=== PATIENT | female | born 2000 | race Caucasian/White ===

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

== ENCOUNTER 2020-07-29 17:43 | Inpatient (IN) ==
[2020-07-29] MEDS ORDERED: SODIUM CHLORIDE 0.9% 1000ML 1,000 ML IV ONE (19:03)
[2020-07-29] MEDS ORDERED: ONDANSETRON INJ 2 MG/ML 2 ML VIAL IV STA (19:03)
[2020-07-29] MEDS ORDERED: ACETAMINOPHEN 1000 MG/100 ML IV IV STA (19:03)
[2020-07-29] MEDS ORDERED: KETOROLAC TROMETHAMINE 15 MG/ML VIAL IV ONE (19:03)
--- NOTE | 2020-07-29 19:09 | Emergency Department Note ---
Impression & Plan Acute dehydration, Colitis, Diarrhea, Leukocytosis ED Provider Note NAME: MIRACLE BERMUDEZ AGE: 20 SEX: F : 2000 ARRIVES VIA: Walk-In INFORMANT: [Patient] ED PROVIDER(S): [Rey Weathers MD] CHIEF COMPLAINT: Diarrhea HISTORY OF PRESENT ILLNESS: The patient is a 20-year-old female presents to the ED with complaints of 5 days of symptoms. She has had diarrhea. Initially, there was some blood in the diarrhea but this has resolved. She has diffuse crampy abdominal pain and feels bloated. She has had nausea with no appetite. She feels weak and exhausted and thinks that she is dehydrated. At times, she is had a low-grade fever up to 100.5 degrees. No sick contacts. No bad food eaten. The patient was at [facility] ago, her labs showed a slight leukocytosis and a slightly low sodium. She had a negative Covid test. The patient has never felt this before. There is no family history of inflammatory bowel disease. REVIEW OF SYSTEMS: See HPI for pertinent positives and negatives. A total of ten systems were reviewed and were otherwise negative. PMHx/PSHx: See Below SOCIAL HISTORY: See Below. PHYSICAL EXAM: GENERAL: Patient is in no acute distress. HEENT: No acute trauma, normocephalic atraumatic, mucous membranes moist, no nasal congestion, no scleral icterus. NECK: No stridor, no adenopathy, no meningismus, trachea is midline. LUNGS: Clear to auscultation bilaterally, no wheeze, no rhonchi, breath sounds equal. HEART: Mildly tachycardic, regular rhythm, no murmurs. ABDOMEN: Soft, mildly diffusely tender, bowel sounds positive and hyperactive, no hernias, no peritonitis. EXTREMITIES: No cyanosis or edema, full range of motion of all the joints without pain or difficulty, no signs for acute trauma. NEUROLOGIC: Oriented x 3, no acute motor or sensory deficits, no focal weakness. SKIN: No rash, no jaundice, no diaphoresis. DIFFERENTIAL DIAGNOSIS: Appendicitis, ovarian cyst, ovarian torsion, ectopic , TOA, PID, infections, colitis, foodborne or viral illness, diverticulitis, UTI, inflammatory bowel disease, renal colic, PUD, pancreatitis, biliary pathology, hernia, volvulus, as well as other pathologies. EMERGENCY DEPARTMENT COURSE/PROCEDURES: MEDICAL DECISION MAKING: There is a mild leukocytosis at 13,000, this is consistent with infection. There is a normal hemoglobin and platelet count. Sed rate was elevated at 50 consistent with ongoing inflammation. No significant electrolyte abnormality or kidney failure. No worrisome liver enzyme elevation. No evidence for pancreatitis. testing was negative. Urinalysis was suggestive of dehydration with 4+ ketones. No infection. Stool C. difficile was negative. Stool cultures are pending. Abdominal and pelvis CT shows evidence for diffuse colitis. On exam, the patient appeared dehydrated, she was diffusely mildly tender about the abdomen, she was not febrile, she did not appear acutely toxic. The patient received IV Tylenol for pain, she was given IV Zofran and IV saline 1 L. She received IV Toradol. She eventually was given a second dose of IV Zofran and a dose of IV Pepcid. She received 2 L of lactated Ringer's IV. Patient has been here for around 7 hours, she still nauseated, she still feels unwell. I did speak with GI about her case. No antibiotics are to be administered--we await the stool culture results. The patient is in need of a colonoscopy in the near future. Given the circumstances, given her presentation and lack of improvement here in the ED, I do think a hospital stay is warranted. I spoke to the patient about all of her findings, I spoke with case management. The on-call hospitalist was consulted. Past Med/Surg History Medical History No significant past medical history Social History Smoking Status: Never smoker Preferred Language: Malay Feels Safe at Home: Yes Allergies Allergies Allergy/AdvReac Type Severity Reaction Status Date / Time No Known Allergies Allergy Unverified 07/29/20 20:18 Home Meds Home Medications Medication Instructions Recorded Confirmed dicyclomine 10 mg PO QID 07/29/20 07/29/20 loperamide [Imodium] 2 mg PO Q6H PRN 07/29/20 07/29/20 Results & Data (ED) Vital Signs Vital Signs - 24 hr 07/29/20 17:51 07/29/20 19:15 07/29/20 19:17 Temperature 36.8 C Temperature Source Temporal Artery Scan Pulse Rate 118 H 105 H Pulse Rate [Apical] 91 H Pulse Rate from SpO2 Sensor 103 H Pulse Rhythm [Apical] Regular Pulse Strength [Apical] Normal Respiratory Rate 16 15 16 Respiratory Effort / Characteristics Non-Labored Non-Labored Spontaneous Respiratory Depth Normal Normal Respiratory Pattern Regular Regular Blood Pressure 123/84 118/82 Blood Pressure [Right Arm] 118/82 Blood Pressure Mean 97 94 Blood Pressure Mean [Right Arm] 94 Blood Pressure Position Sitting Blood Pressure Position [Right Arm] Sitting Pulse Oximetry 94 99 100 Oxygen Delivery Method Room Air Room Air Room Air Sepsis Recent Fever Within 48 Hours No Sepsis New/Unexplained Change in Mental Status No Sepsis Action Taken by Nursing No Action Required 07/29/20 19:31 07/29/20 20:00 07/29/20 20:20 Temperature Temperature Source Pulse Rate 99 H 99 H Pulse Rate [Apical] Pulse Rate from SpO2 Sensor 99 H 97 H Pulse Rhythm [Apical] Pulse Strength [Apical] Respiratory Rate 15 20 Respiratory Effort / Characteristics Non-Labored Spontaneous Respiratory Depth Normal Respiratory Pattern Regular Blood Pressure Blood Pressure [Right Arm] Blood Pressure Mean Blood Pressure Mean [Right Arm] Blood Pressure Position Blood Pressure Position [Right Arm] Pulse Oximetry 100 97 Oxygen Delivery Method Room Air Sepsis Recent Fever Within 48 Hours Sepsis New/Unexplained Change in Mental Status Sepsis Action Taken by Nursing 07/29/20 20:30 07/29/20 21:29 07/29/20 21:30 Temperature Temperature Source Pulse Rate 99 H 90 84 Pulse Rate [Apical] Pulse Rate from SpO2 Sensor 99 H 91 H 85 Pulse Rhythm [Apical] Pulse Strength [Apical] Respiratory Rate 15 17 17 Respiratory Effort / Characteristics Respiratory Depth Respiratory Pattern Blood Pressure 120/81 113/76 Blood Pressure [Right Arm] Blood Pressure Mean 94 88 Blood Pressure Mean [Right Arm] Blood Pressure Position Blood Pressure Position [Right Arm] Pulse Oximetry 96 97 95 Oxygen Delivery Method Room Air Room Air Sepsis Recent Fever Within 48 Hours Sepsis New/Unexplained Change in Mental Status Sepsis Action Taken by Long-Term Medications Current Medication List: was personally reviewed by me Laboratory Data Attestation: I reviewed the patient's lab results. Result diagrams: 07/29/20 19:35 07/29/20 19:35 Lab Results 07/29/20 07/29/20 07/29/20 Range/Units 19:35 19:35 19:35 WBC 13.79 H (4.8-10.8) K/uL RBC 4.30 (4.2-5.4) M/uL Hgb 12.9 (12.0-16.0) g/dL Hct 37.4 (37-47) % MCV 87.0 (80-100) fL MCH 30.0 (25-34) pg MCHC 34.5 (32-36) g/dL RDW Std Deviation 38.8 (36.4-46.3) fL RDW Coeff of Jase 12.1 (11.5-14.5) % Plt Count 375 (130-400) K/uL MPV 10.0 (7.4-10.4) fL Immature Gran % (Auto) 5.3 % Neut % (Auto) 63.9 % Lymph % (Auto) 13.1 % [place] % (Auto) 16.9 % Eos % (Auto) 0.4 % Baso % (Auto) 0.4 % Neut # (Auto) 8.82 H (1.4-6.5) K/uL Lymph # (Auto) 1.80 (1.2-3.4) K/uL [place] # (Auto) 2.33 H (0.11-0.59) K/uL Eos # (Auto) 0.05 (0-0.5) K/uL Baso # (Auto) 0.06 (0-0.2) K/uL Immature Gran # (Auto) 0.73 H (0.00-0.02) K/uL Absolute Nucleated RBC 0.02 H (0-0) K/uL Nucleated RBC % (auto) 0.1 % Toxic Granulation 1+ Polychromasia 1+ ESR (0-21) mm/hr Sodium 133 L (136-145) mmol/L Potassium 3.7 (3.5-5.1) mmol/L Chloride 98 (98-107) mmol/L Carbon Dioxide 25 (21-32) mmol/L Anion Gap 10.0 (3-11) BUN 8 (7-18) mg/dl Creatinine 0.71 (0.6-1.2) mg/dl Est Cr Clr Drug Dosing 120.9 ml/min Est GFR ( Amer) 141.1 Est GFR (Non-Af Amer) 121.8 BUN/Creatinine Ratio 11.4 (10-20) Glucose 106 H (70-99) mg/dl Calcium 9.0 (8.5-10.1) mg/dl Magnesium 2.0 (1.8-2.4) mg/dl Total Bilirubin 0.7 (0.2-1) mg/dl AST 7 L (15-37) U/L ALT 16 (12-78) U/L Alkaline Phosphatase 113 (45-117) U/L Total Protein 7.3 (6.4-8.2) gm/dl Albumin 2.9 L (3.4-5.0) gm/dl Globulin 4.4 H (2.5-4.0) gm/dl Albumin/Globulin Ratio 0.7 L (0.9-2) Lipase 86 (73-393) U/L HCG, Qual Negative (Negative) Urine Color Urine Appearance (Clear) Urine pH (4.5-7.5) Ur Specific [place] (1.000-1.030) Urine Protein (Negative) Urine Glucose (UA) (Negative) Urine Ketones (Negative) Urine Blood (Negative) Urine Nitrite (Negative) Urine Bilirubin (Negative) Urine Urobilinogen (Negative) Ur Leukocyte Esterase (Negative) Urine WBC (Auto) (0-5) /hpf Urine RBC (Auto) (0-4) /hpf U Hyaline Cast (Auto) (0-5) /lpf U Epithel Cells (Auto) (0-5) /lpf Urine Bacteria (Auto) (Negative) Ur Renal Epithelial Cell Stl C. diff Tox B Gene (Neg) 07/29/20 07/29/20 07/29/20 Range/Units 19:35 19:35 Unknown WBC (4.8-10.8) K/uL RBC (4.2-5.4) M/uL Hgb (12.0-16.0) g/dL Hct (37-47) % MCV (80-100) fL MCH (25-34) pg MCHC (32-36) g/dL RDW Std Deviation (36.4-46.3) fL RDW Coeff of Jase (11.5-14.5) % Plt Count (130-400) K/uL MPV (7.4-10.4) fL Immature Gran % (Auto) % Neut % (Auto) % Lymph % (Auto) % [place] % (Auto) % Eos % (Auto) % Baso % (Auto) % Neut # (Auto) (1.4-6.5) K/uL Lymph # (Auto) (1.2-3.4) K/uL [place] # (Auto) (0.11-0.59) K/uL Eos # (Auto) (0-0.5) K/uL Baso # (Auto) (0-0.2) K/uL Immature Gran # (Auto) (0.00-0.02) K/uL Absolute Nucleated RBC (0-0) K/uL Nucleated RBC % (auto) % Toxic Granulation Polychromasia ESR 49 H (0-21) mm/hr Sodium (136-145) mmol/L Potassium (3.5-5.1) mmol/L Chloride (98-107) mmol/L Carbon Dioxide (21-32) mmol/L Anion Gap (3-11) BUN (7-18) mg/dl Creatinine (0.6-1.2) mg/dl Est Cr Clr Drug Dosing ml/min Est GFR ( Amer) Est GFR (Non-Af Amer) BUN/Creatinine Ratio (10-20) Glucose (70-99) mg/dl Calcium (8.5-10.1) mg/dl Magnesium (1.8-2.4) mg/dl Total Bilirubin (0.2-1) mg/dl AST (15-37) U/L ALT (12-78) U/L Alkaline Phosphatase (45-117) U/L Total Protein (6.4-8.2) gm/dl Albumin (3.4-5.0) gm/dl Globulin (2.5-4.0) gm/dl Albumin/Globulin Ratio (0.9-2) Lipase (73-393) U/L HCG, Qual (Negative) Urine Color [place] Urine Appearance Cloudy A (Clear) Urine pH 6.5 (4.5-7.5) Ur Specific [place] 1.022 (1.000-1.030) Urine Protein 1+ H (Negative) Urine Glucose (UA) Negative (Negative) Urine Ketones 4+ H (Negative) Urine Blood Negative (Negative) Urine Nitrite Negative (Negative) Urine Bilirubin 1+ H (Negative) Urine Urobilinogen Negative (Negative) Ur Leukocyte Esterase Trace H (Negative) Urine WBC (Auto) 1-5 (0-5) /hpf Urine RBC (Auto) 5-10 H (0-4) /hpf U Hyaline Cast (Auto) 5-10 H (0-5) /lpf U Epithel Cells (Auto) >30 H (0-5) /lpf Urine Bacteria (Auto) Negative (Negative) Ur Renal Epithelial Cell Not Reportable Stl C. diff Tox B Gene Negative Cdiff Gene (Neg) Administered Medications Discontinued Medications Acetaminophen (Acetaminophen 1000 Mg/100 Ml Iv) 1,000 mg IV NOW STA Stop: 07/29/20 19:04 Last Admin: 07/29/20 19:43 Dose: 1,000 mg Documented by: [id number] Sodium Chloride (Nss 1000ml) 1,000 mls @ 999 mls/hr IV .Q1H1M ONE Stop: 07/29/20 20:03 Last Infusion: 07/29/20 20:30 Dose: 0 mls/hr Documented by: [id number] Admin: 07/29/20 19:36 Dose: 999 mls/hr Documented by: [id number] Lactated Ringer's (Lr) 1,000 mls @ 999 mls/hr IV .Q1H1M STA Stop: 07/29/20 21:46 Last Infusion: 07/29/20 22:00 Dose: 0 mls/hr Documented by: [id number] Admin: 07/29/20 21:25 Dose: 999 mls/hr Documented by: [id number] Lactated Ringer's (Lr) 1,000 mls @ 999 mls/hr IV .Q1H1M STA Stop: 07/30/20 00:12 Last Admin: 07/29/20 23:18 Dose: 999 mls/hr Documented by: [id number] Ioversol (Ioversol 100ml) 93 ml IV ONCE ONE Stop: 07/29/20 21:57 Last Admin: 07/29/20 21:57 Dose: 93 ml Documented by: [id number] Ketorolac Tromethamine (Ketorolac Tromethamine 15 Mg/Ml Vial) 10 mg IV NOW ONE Stop: 07/29/20 19:04 Last Admin: 07/29/20 19:43 Dose: 10 mg Documented by: [id number] Ondansetron HCl (Ondansetron Inj 2 Mg/Ml 2 Ml Vial) 4 mg IV NOW STA Stop: 07/29/20 19:04 Last Admin: 07/29/20 19:43 Dose: 4 mg Documented by: [id number] Imaging Data Radiologist's Impression: ABDOMEN AND PELVIS CT WITH IV AND ORAL CONTRAST CT DOSE: 298.20 mGy.cm HISTORY: Acute generalized abdominal pain with fever and diarrhea diffuse pain, diarrhea, fever TECHNIQUE: Multiaxial CT images of the abdomen and pelvis were performed following the IV administration of 93 cc of Optiray 320 and oral contrast. A dose lowering technique was utilized adhering to the principles of ALARA. COMPARISON STUDY: None. FINDINGS: Clear lung bases. No pneumatosis or pneumoperitoneum. The imaged inferior cardiac chambers are unremarkable. Spleen measures the upper limits of normal in size at 12.8 cm. Unremarkable pancreas, adrenal glands, gallbladder and liver. Patency of the hepatic and portal veins. Mild pelviectasis of the right kidney. Kidneys are otherwise unremarkable. Mild urinary bladder distention. Unremarkable uterus. Phleboliths of the pelvis. Aorta and IVC are unremarkable. There is no bowel obstruction. Air and fluid-filled loops of large bowel are noted. Additionally, there is moderate to marked circumferential wall thickening with pericolonic stranding and trace free fluid which extends from the cecum through the mid descending colon. The ascending colon measures up to 5.5 cm transversely. There are numerous prominent and mildly enlarged lymph nodes which are most pronounced in the right lower quadrant mesocolon measuring up to 11 mm in short axis. The appendix is fluid-filled and measures up to 7 mm and does not opacify with contrast, image 302 series 3. No periappendiceal inflammation. The breast parenchyma and soft tissues are unremarkable. Bones appear normal. IMPRESSION: 1. Moderate to marked circumferential wall thickening of the colon which extends from the cecum to the mid descending colon is noted in conjunction with pericolonic stranding and trace pericolonic free fluid. Findings are consistent with a nonspecific colitis, likely infectious or inflammatory. 2. Air-fluid levels of the colon compatible with associated diarrheal illness. 3. The appendix is fluid-filled and measures within the upper limits of normal at 7 mm, likely secondary to underlying diarrheal illness. No periappendiceal stranding to suggest acute appendicitis. 4. Enlarged pericolonic lymph nodes are likely reactive. 5. No bowel obstruction or pneumoperitoneum. Discharge Plan Visit Data Chief Complaint: Diarrhea Stated Complaint: DIARRHEA, ABD PAIN ED Provider: Rey Weathers Discharge Problem: Acute dehydration, Colitis, Diarrhea, Leukocytosis Patient Disposition: Admitted As Inpatient Condition: Fair Forms Stand Alone Forms: [facility], Virtual Emergency Department, Important Visit Information Prescriptions Prescriptions: No Action loperamide [Imodium] 2 mg Capsule 2 mg PO Q6H PRN (Reason: Diarrhea) RF: 0 dicyclomine 10 mg capsule 10 mg PO QID RF: 0 Referrals Referrals: Jasbir Pack MD [Physician] - [facility] [Primary Care Provider] - Discharge Problem: Diarrhea Qualifiers: Diarrhea type: unspecified type Qualified Code(s): R19.7 - Diarrhea, unspecifi ed Leukocytosis Qualifiers: Leukocytosis type: unspecified Qualified Code(s): D72.829 - Elevated white blood cell count, unspecified
[2020-07-29 19:54] LABS: Hematocrit (blood only) 37.4 % (37-47); Hemoglobin 12.9 g/dL (12.0-16.0); Mean Corpuscular Hgb Conc 34.5 g/dL (32-36); Nucleated RBC # (auto) 0.02 K/uL (0-0); Nucleated RBC % (auto) 0.1 %; Platelet Count 375 K/uL (130-400); RDW Coefficient of Variation 12.1 % (11.5-14.5); RDW Standard Deviation 38.8 fL (36.4-46.3); White Blood Count 13.79 K/uL (4.8-10.8)
[2020-07-29 20:06] LABS: Appearance Urine Cloudy (Clear); Bacteria Urine Automated Negative (Negative); Blood Urine Negative (Negative); Color Urine Orange; Epithelial Cell Urine Auto >30 /lpf (0-5); Glucose Urine UA Negative (Negative); Ketones Urine 4+ (Negative); Leukocyte Esterase Urine Trace (Negative); Nitrite Urine Negative (Negative); Protein Urine 1+ (Negative); Specific Gravity Urine 1.022 (1.000-1.030); Urobilinogen Urine Negative (Negative); pH Urine 6.5 (4.5-7.5)
[2020-07-29 20:13] LABS: Basophils # (auto) 0.06 K/uL (0-0.2); Basophils % (auto) 0.4 %; Eosinophils # (auto) 0.05 K/uL (0-0.5); Eosinophils % (auto) 0.4 %; Immature Granulocytes # (auto) 0.73 K/uL (0.00-0.02); Immature Granulocytes % (auto) 5.3 %; Lymphocytes % (auto) 13.1 %; Monocytes # (auto) 2.33 K/uL (0.11-0.59); Monocytes % (auto) 16.9 %; Neutrophils # (auto) 8.82 K/uL (1.4-6.5); Neutrophils % (auto) 63.9 %; Polychromasia 1+; Toxic Granulation 1+
[2020-07-29 20:15] LABS: Albumin Level 2.9 gm/dl (3.4-5.0); BUN Creatinine Ratio 11.4 (10-20); Creatinine Clr Calc Pharmacy 120.9 ml/min; Est GFR (African American) 141.1; Est GFR (Non-African American) 121.8; Potassium 3.7 mmol/L (3.5-5.1)
[2020-07-29 20:17] LABS: Albumin Globulin Ratio 0.7 (0.9-2); Bilirubin,Total 0.7 mg/dl (0.2-1); Globulin 4.4 gm/dl (2.5-4.0); Total Protein 7.3 gm/dl (6.4-8.2)
[2020-07-29 20:23] LABS: Pregnancy Test, Serum Negative (Negative)
[2020-07-29 20:28] LABS: Bilirubin Urine 1+ (Negative)
[2020-07-29] MEDS ORDERED: LACTATED RINGER'S 1,000 ML IV STA ×2 (20:46→23:12)
[2020-07-29] MEDS ORDERED: IOVERSOL 100ml IV ONE (21:56)
--- NOTE | 2020-07-29 22:38 | CT Scan Report ---
ABDOMEN AND PELVIS CT WITH IV AND ORAL CONTRAST CT DOSE: 298.20 mGy.cm HISTORY: Acute generalized abdominal pain with fever and diarrhea diffuse pain, diarrhea, fever TECHNIQUE: Multiaxial CT images of the abdomen and pelvis were performed following the IV administrat ion of 93 cc of Optiray 320 and oral contrast. A dose lowering technique was utilized adhering to th e principles of ALARA. COMPARISON STUDY: None. FINDINGS: Clear lung bases. No pneumatosis or pneumoperitoneum. The imaged inferior cardiac chambers are unremarkable. Spleen measures the upper limits of normal in size at 12.8 cm. Unremarkable pancrea s, adrenal glands, gallbladder and liver. Patency of the hepatic and portal veins. Mild pelviectasis of the right kidney. Kidneys are otherwise unremarkable. Mild urinary bladder diste ntion. Unremarkable uterus. Phleboliths of the pelvis. Aorta and IVC are unremarkable. There is no bowel obstruction. Air and fluid-filled loops of large bowel are noted. Additionally, the re is moderate to marked circumferential wall thickening with pericolonic stranding and trace free fl uid which extends from the cecum through the mid descending colon. The ascending colon measures up to 5.5 cm transversely. There are numerous prominent and mildly enlarged lymph nodes which are most pro nounced in the right lower quadrant mesocolon measuring up to 11 mm in short axis. The appendix is fl uid-filled and measures up to 7 mm and does not opacify with contrast, image 302 series 3. No periapp endiceal inflammation. The breast parenchyma and soft tissues are unremarkable. Bones appear normal. IMPRESSION: 1. Moderate to marked circumferential wall thickening of the colon which extends from the cecum to th e mid descending colon is noted in conjunction with pericolonic stranding and trace pericolonic free fluid. Findings are consistent with a nonspecific colitis, likely infectious or inflammatory. 2. Air-fluid levels of the colon compatible with associated diarrheal illness. 3. The appendix is fluid-filled and measures within the upper limits of normal at 7 mm, likely second victor hugo to underlying diarrheal illness. No periappendiceal stranding to suggest acute appendicitis. 4. Enlarged pericolonic lymph nodes are likely reactive. 5. No bowel obstruction or pneumoperitoneum. ACT 112: Negative or not required by law. The above report was generated using voice recognition software. It may contain grammatical, syntax o r spelling errors. Electronically signed by: Ron Horton M.D. 07/29/2020 10:37 PM
[2020-07-30] MEDS ORDERED: ONDANSETRON INJ 2 MG/ML 2 ML VIAL IV STA (01:10)
[2020-07-30] MEDS ORDERED: FAMOTIDINE 20MG/5ML IV PUSH IV STA (01:10)
[2020-07-30] MEDS ORDERED: LACTATED RINGER'S 1,000 ML IV ONE (01:52)
--- NOTE | 2020-07-30 02:00 | History & Physical Report ---
Date of Service July 30, 2020 Assessment & Plan (1) Colitis: Patient is a 20 year female with PMHx internal hemorrhoids that presented with 6 day history of copious and occasionally blood tinged diarrhea with minimal relief with Imodium use. Diarrhea secondary to Colitis -6 day history of diarrhea, ?secondary to infectious etiology including EHEC, Salmonella, Shigella -Stool culuture sent, pending -Hemeoccult + -CT ab/pelv showing wall thickening of the colon consistent with findings of nonspecific colitis -Hgb stable 12.9 -Given 1L NSS and 3L LR bolus's in ED -Will continue with D5W NSS+20meq KCl @ 125ml/hr -Will keep patient NPO until evaluated by GI -GI Dr. Pack consulted -Zofran PRN for nausea -Patient will likely require colonoscopy when no longer in acute phase Leukocytosis -Likely secondary to colitis as above -CBC in AM Dispo: Med/Surg for monitoring, IV fluid resuscitation from profound diarrhea, pending stool culture for treatable etiology vs viral/inflammatory FEN: NPO, D5W NSS+20meq KCl @ 125ml/hr DVT: Low Risk, SCD Code: Full (2) Diarrhea: (3) Leukocytosis: History of Present Illness Chief Complaint: diarrhea x 6 days Primary Care Provider: [facility] Patient is a 20 year female with PMHx internal hemorrhoids that presented with 6 day history of copious and occasionally blood tinged diarrhea with minimal relief with Imodium use. Patient notes that starting this past Saturday she started having copious amounts of diarrhea, upwards to 10 times daily, which would occasionally have bright red blood or be tinged pink. She notes that it improved slightly after using Imodium daily, but that she was still having diarrhea 6-7 times daily. She denies ever having anything similar in the past. She denies any history or family history of IBD. She does note that she had take out ramen 3 days prior to the start of her symptoms and a caesar salad made with florentino lettuce the day her symptoms started. She states that her father who had been up visiting her had eaten the ramen, but not the salad and was not having any symptoms. In addition to the diarrhea the patient has also noted abdominal pain and discomfort, limiting her PO intake due to nausea. She has not vomited, but "dry heaves." Notes having a low grade fever of 100.5F on and off throughout the week. She had visited [facility] services 2 days prior where a COVID-19 and In fluenza screen were negative. She was given a prescription for Bentyl, but has not picked it up yet. Denies any chest pain, SOB, dysuria, hematuria. Med Hx - internal hemorrhoids Surg hx - negative Soc hx - [employer] student, no tobacco, alcohol, drug use Fam Hx - negative per patient, mother and father healthy Allergies Allergy/AdvReac Type Severity Reaction Status Date / Time No Known Allergies Allergy Unverified 07/29/20 20:18 Home Medications Medication Instructions Recorded Confirmed Type dicyclomine 10 mg PO QID 07/29/20 07/29/20 History loperamide [Imodium] 2 mg PO Q6H PRN 07/29/20 07/29/20 History Past Med/Surg History Medical History No significant past medical history Social History Smoking Status: Never smoker Hx Alcohol Use: No Hx Substance Use: No Preferred Language: Kinyarwanda Communication Ability: Effective 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 Beliefs That Will Affect Care: None Current Living Situation: Alone Feels Safe at Home: Yes Safety Concerns: Feels Safe At This Time Assistive Devices: None Review of Systems Review of Systems: All systems reviewed & are unremarkable except as noted in Subjective Physical Exam Constitutional: well developed and well nourished; no acute distress Eyes: PERRL, conjunctivae normal, anicteric sclerae ENMT: external ear and nose normal, oropharynx normal Neck: trachea midline, no thyromegaly Respiratory: normal respiratory effort, lungs clear to auscultation Cardiovascular: Rate/Rhythm: + tachycardic Heart Sounds: normal S1 and nor mal S2; no murmur Vessels: no JVD Extremities: no calf tenderness and no edema Gastrointestinal (Abdomen): Inspection/Auscultation: abdomen normal to inspection and normal bowel sounds; abdomen not distended Percussion/Palpation: + abdomen tender (diffusely TTP throughout, worse on L side ) and abdomen soft; no guarding and abdomen not rigid Rectal exam was deferred per patient request Musculoskeletal: no cyanosis or clubbing, extremities motor strength 5/5 Skin: no rashes, warm and dry Neurologic: PERRL, EOMI, accommodation nl, no face palsy, no dysarthria Psychiatric: Orientation: alert and oriented x 3 Affect: + anxious affect Results & Data Results & Data ([facility]) Vital Signs (Past 12 Hours) Vital Signs Temp Pulse Pulse Resp BP BP Pulse Ox 07/30/20 01:08 112 H 14 128/69 99 07/30/20 01:00 108 H 17 119/75 97 07/30/20 00:30 107 H 14 126/80 96 07/30/20 00:00 83 17 109/71 98 07/29/20 23:30 83 15 116/66 96 07/29/20 23:21 81 14 109/73 99 07/29/20 23:00 82 18 121/75 96 07/29/20 22:30 88 17 106/68 96 07/29/20 22:00 92 H 19 108/75 96 07/29/20 21:30 84 17 113/76 95 07/29/20 21:29 90 17 120/81 97 07/29/20 20:30 99 H 15 96 07/29/20 20:20 99 H 20 97 07/29/20 20:00 99 H 15 100 07/29/20 19:17 91 H 16 118/82 100 07/29/20 19:15 105 H 15 118/82 99 07/29/20 17:51 36.8 C 118 H 16 123/84 94 Code Status & VTE Plan VTE Prophylaxis Plan VTE Prophylaxis will be ordered: Yes Supervising Physician Co-Signing Physician Notes Attending addendum: I have physically seen this patient, have supervised the medical residents activities, and agree with the H&P unless as otherwise noted. Assessment and Plan: Colitis/diarrhea- Follow stool culture and C. difficile studies IV fluid rehydration in ED: 1 L normal saline, 3 L LR. Placed on D5 W NSS plus KCl 20 mEq at high 25 mils per hour NPO Consult gastroenterology Zofran 4 mg IV every 6 hours as needed Famotidine 20 mg IV every 12 hours Remaining orders and notations as noted Resident Activity Tracking Resident Involvement: Resident Care Provided Care Provided: Adult Hospital Medicine (1) Diarrhea Diarrhea type: unspecified type Qualified Code(s): R19.7 - Diarrhea, unspecified (2) Leukocytosis Leukocytosis type: unspecified Qualified Code(s): D72.829 - Elevated white blood cell count, unspecified
[2020-07-30] MEDS ORDERED: ACETAMINOPHEN 325 MG TAB PO PRN (04:10)
[2020-07-30] MEDS: D5NSS + 20MEQ KCL 20 MEQ/1,000 ML BAG IV SCH ×3 (04:24→19:26)
[2020-07-30 07:08] LABS: Hematocrit (blood only) 32.2 % (37-47); Hemoglobin 10.9 g/dL (12.0-16.0); Mean Corpuscular Hemoglobin 29.8 pg (25-34); Mean Corpuscular Hgb Conc 33.9 g/dL (32-36); Mean Platelet Volume 9.8 fL (7.4-10.4); Platelet Count 302 K/uL (130-400); RDW Coefficient of Variation 12.3 % (11.5-14.5); RDW Standard Deviation 39.5 fL (36.4-46.3); Red Blood Count 3.66 M/uL (4.2-5.4); White Blood Count 11.39 K/uL (4.8-10.8)
[2020-07-30 07:28] LABS: ALC (manual) 1.87 K/uL (1.2-3.4); ANC (manual) 8.14 K/uL (1.4-6.5); Eosinophils % (manual) 0.9 %; Lymphocytes # (manual) 1.87 K/uL (1.2-3.4); Lymphocytes % (manual) 16.4 %; Metamyelocytes % (manual) 0.9 %; Monocytes # (manual) 1.17 K/uL (0.11-0.59); Monocytes % (manual) 10.3 %; Neutrophils # (manual) 8.14 K/uL (1.4-6.5); Neutrophils % (manual) 71.5 %
[2020-07-30 07:46] LABS: Blood Urea Nitrogen 6 mg/dl (7-18); Calcium 8.2 mg/dl (8.5-10.1); Carbon Dioxide 25 mmol/L (21-32); Chloride 104 mmol/L (98-107); Creatinine Clr Calc Pharmacy 140.5 ml/min; Est GFR (African American) > 150.0; Est GFR (Non-African American) 129.6; Glucose 111 mg/dl (70-99); Potassium 3.4 mmol/L (3.5-5.1); Sodium 137 mmol/L (136-145)
--- NOTE | 2020-07-30 09:02 | Hospitalist Progress Note ---
Date of Service July 30, 2020 Assessment & Plan (1) Colitis: Patient is a healthy 20 y/o F w/ hx of internal hemorrhoids who presented with 6 day history of copious and occasionally blood tinged diarrhea with minimal relief with Imodium use. Diarrhea secondary to Colitis - most likely 2/2 new onset of possible IBD - intermittent blood tinge in diarrhea, including during this admission. Hemoccult+ -Stool culture sent, pending. will defer anti diarrheals and abx at this time. ?secondary to infectious etiology (less likely) including EHEC, Salmonella, Shigella. Food intake hx not super suggestive. -CT ab/pelv showing wall thickening of the colon consistent with findings of nonspecific colitis -Hgb stable 12.9 -Given 1L NSS and 3L LR bolus's in ED -Will continue with D5W NSS+20meq KCl @ 125ml/hr. considered 1/2 NSS for hypotonic->better intravascular resuscitation. also considered LR. NSS reasonable to continue given hyponatremic 133 on admission and probably solute losses from diarrhea. isotonic vs hypotonic dehydration. -GI Dr. Pack consulted. plan is colonoscopy 07/01/20 -Zofran PRN for nausea - starting solumedrol IV 40 mg q12 on 07/30/20 early PM Leukocytosis and fevers - 13.79->11.39 (07/30/20) -intermittent fevers, tmax 39.1C on admission, afebrile AM after -leukocytosis likely secondary to IBD Hyponatremia - resolved. 137 on 07/30/20 FEN: clear liquid diet. D5W NSS+20meq KCl @ 125ml/hr DVT: Low Risk, SCD Code: Full Dispo: Med surg, IV fluid resuscitation from profound diarrhea, pending stool culture for treatable etiology vs viral/inflammatory, pending colonoscopy (2) Diarrhea: (3) Leukocytosis: (4) Fever: (5) Acute dehydration: Admission and Anticipated Discharge Date Admission Date: July 30, 2020 Supervising Physician Co-Signing Physician Notes I personally examined the patient and verified all alcantar points of history and exam, discussed case, and agree with decision making with Dr Urbina. Ongoing abdominal pain. Seen just as GI was finishing up, able to discuss the case with gastroenterology in the room with the patient as well. After this discussed what having inflammatory bowel disease would mean, ongoing treatment, ongoing care, etc. Answered all questions to the best my ability. Vitals noted, in general she is awake and alert pleasant no distress. HEENT normocephalic atraumatic mucous membranes moist. Breathing unlabored no accessory muscle use good effort. Skin shows no rashes no pallor or icterus. Neuro shows cranial nerves II through XII grossly intact gross motor and sensory intact. Bloody diarrheagiven the time between the questionable meal and the onset of the diarrhea I agree with gastroenterology that foodborne illness is less likely. Concerning for IBD. Agree with colonoscopy next week. Extensive discussions with patient to leave the framework of ongoing management and treatment and an overall idea of what the course of care would be like. Answered all questions the best my ability and to her satisfaction. Subjective Additional Hx: Diarrhea since 07/24/20. + bloating and generalized abd discomfort. Dry heaving. Has not eaten much since 07/24/20. This morning, felt pretty bad, stomach uncomfortable. Currently feeling a little better. + subj fever. 5/10 abd discomfort, aches. Diarrhea improved some. Last BM overnight, diarrhea. ~10 episodes/day of diarrhea all week. + bright red blood in stool. Hemoccult pos. Hx hemorrhoids before, but not these current symptoms. No recent travel. Review of Systems Review of Systems: Constitutional: Denies chills, Eyes: Denies blurry vision, vision changes ENT: Denies sore throat, Cardiovascular: Denies chest pain, palpitations Respiratory: Denies shortness of breath Gastrointestinal: Denies abdominal pain, nausea, vomiting, diarrhea Genitourinary: Denies urinary symptoms including dysuria Musculoskeletal: Denies weakness, muscle aches/pain, joint aches/pain Neurological: Denies headache, numbness, tingling, focal weakness. no dizziness at rest Physical Exam Physical Exam: General: Grossly A&O. NAD. Cooperative. HEENT: Atraumatic, normocephalic. Pulm: CTAB. -wheezes, -rales, -rhonchi. No respiratory distress. Cardiac: RRR, -mrg. No LE edema Abdominal: Soft, nondistended. Diffuse tenderness, mild. No guarding, rigidity, or rebound. Results & Data Results & Data ([facility]) Vital Signs (Past 12 Hours) Vital Signs Temp Pulse Pulse Resp BP BP Pulse Ox 07/30/20 07:24 38.3 C H 110 H 16 113/73 95 07/30/20 03:57 39.1 C H 102 H 16 117/74 93 07/30/20 03:30 113 H 18 123/74 96 07/30/20 03:00 112 H 21 127/80 95 07/30/20 02:30 116 H 13 129/84 97 07/30/20 02:00 119 H 14 137/89 100 07/30/20 01:30 109 H 18 123/84 98 07/30/20 01:08 112 H 14 128/69 99 07/30/20 01:00 108 H 17 119/75 97 07/30/20 00:30 107 H 14 126/80 96 07/30/20 00:00 83 17 109/71 98 07/29/20 23:30 83 15 116/66 96 07/29/20 23:21 81 14 109/73 99 07/29/20 23:00 82 18 121/75 96 07/29/20 22:30 88 17 106/68 96 07/29/20 22:00 92 H 19 108/75 96 07/29/20 21:30 84 17 113/76 95 07/29/20 21:29 90 17 120/81 97 Resident Activity Tracking Resident Involvement: Resident Care Provided Care Provided: Adult Hospital Medicine (1) Diarrhea Diarrhea type: unspecified type Qualified Code(s): R19.7 - Diarrhea, unspecified (2) Leukocytosis Leukocytosis type: unspecified Qualified Code(s): D72.829 - Elevated white blood cell count, unspecified
[2020-07-30] MEDS: ONDANSETRON INJ 2 MG/ML 2 ML VIAL IV PRN (11:29)
--- NOTE | 2020-07-30 12:36 | Gastrointestinal Consultation ---
Date of Consultation July 30, 2020 Assessment & Plan (1) Colitis: (2) Diarrhea: suspect new onset IBD most likely, less likely infectious at this point (cdiff negative). Recs: --start IV solumedrol 40 mg [id number] --clear liquid diet starting monday 07/31 -- prep with golytely on 07/31 starting at 6 pm, NPO post midnight saturday night except for prep (complete prep by 4 am) --colonoscopy tuesday 08/01 to further evaluate --f/u stool studies Thank you for allowing me to participate in the care of this patient History of Present Illness Attending Physician: Everett Florez, DO 20 yo female with hx internal hemorrhoids who presents with bloody diarrhea for 6 days. She notes eating out at a [employer] restaurant downtown, and few days later on 07/24 she developed profuse watery diarrhea, with blood per rectum. Has tried immodium QID without relief. Notes fevers, abdominal pains described as a pressure in the periumbilical region. Denies n/v, weight loss, or other symptoms. She has been able to eat but continues to have diarrhea. Stool testing for cdiff in the ER was negative. Stool culture pending. No family hx colorectal cancer, IBD. No prior surgeries. CT A/P shows diffuse colitis. labs reviewed, elevated ESR and WBC noted, mild anemia. 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 Beliefs That Will Affect Care: None Current Living Situation: Alone Feels Safe at Home: Yes Safety Concerns: Feels Safe At This Time Assistive Devices: None Review of Systems Constitutional: no fever, no chills and no weight loss Eyes: as per Subjective / HPI Ear, Nose, Mouth, Throat: as per Subjective / HPI Respiratory: no dyspnea and no dyspnea on exertion Cardiovascular: no chest pain and no palpitations Gastrointestinal: as per Subjective / HPI Musculoskeletal: no joint pain and no swelling Integumentary: no rash and no lesions Neurologic: no numbness and no paresthesia Psychiatric: no depression and no anxiety Endocrine: no fatigue Hematologic / Lymphatic: no easy bleeding and no easy bruising Physical Exam Constitutional: WD/WN, vitals as above Eyes: EOM intact bilaterally Neck: normal visual inspection Respiratory: normal respiratory effort, lungs clear to auscultation Cardiovascular: RRR, no murmur, no edema Gastrointestinal (Abdomen): Inspection/Auscultation: abdomen normal to inspection; abdomen not distended Percussion/Palpation: + abdomen tender (mild) and abdomen soft; no hepatosplenomegaly Musculoskeletal: Extremities: no cyanosis Gait: normal gait Skin: no rashes, warm and dry Neurologic: moves all extremities Psychiatric: A+Ox3, euthymic affect Results & Data ([facility]) Vital Signs (Past 12 Hours) Vital Signs Temp Pulse Pulse Pulse Resp BP BP 07/30/20 09:14 37.2 C 90 18 113/71 07/30/20 07:24 38.3 C H 110 H 16 113/73 07/30/20 03:57 39.1 C H 102 H 16 117/74 07/30/20 03:30 113 H 18 123/74 07/30/20 03:00 112 H 21 127/80 07/30/20 02:30 116 H 13 129/84 07/30/20 02:00 119 H 14 137/89 07/30/20 01:30 109 H 18 123/84 07/30/20 01:08 112 H 14 128/69 07/30/20 01:00 108 H 17 119/75 07/30/20 00:30 107 H 14 126/80 Pulse Ox 07/30/20 09:14 95 07/30/20 07:24 95 07/30/20 03:57 93 07/30/20 03:30 96 07/30/20 03:00 95 07/30/20 02:30 97 07/30/20 02:00 100 07/30/20 01:30 98 07/30/20 01:08 99 07/30/20 01:00 97 07/30/20 00:30 96 PG Care Time/CCT Total # of Minutes Spent Total Time Spent with Patient: Total time spent is greater than 50% in coordination of care (as documented) at patient's floor/unit and/or counseling patient: Coding Level of Care Code 68073 Inpt Consult Level 4 Diagnoses Colitis K52.9 Diarrhea R19.7 Diarrhea type: unspecified type (1) Diarrhea Diarrhea type: unspecified type Qualified Code(s): R19.7 - Diarrhea, unspecified
[2020-07-30] MEDS: methylPREDNISolone 40 MG in SYRINGE 0 ML IV SCH ×3 (14:00→22:02)
--- NOTE | 2020-07-30 18:48 | Billing Data ---
Date of Service July 30, 2020 Coding Level of Care Code 31997 Subseq Hosp Care Lvl 3
--- NOTE | 2020-07-30 22:56 | Billing Data ---
Date of Service July 30, 2020 Coding Level of Care Code 93148 OBS Care - Level 3
[2020-07-31] MEDS: D5NSS + 20MEQ KCL 20 MEQ/1,000 ML BAG IV SCH ×3 (03:21→18:30)
[2020-07-31 06:13] LABS: Hematocrit (blood only) 33.9 % (37-47); Hemoglobin 11.4 g/dL (12.0-16.0); Mean Corpuscular Hemoglobin 30.2 pg (25-34); Mean Corpuscular Hgb Conc 33.6 g/dL (32-36); Mean Corpuscular Volume 89.7 fL (80-100); Mean Platelet Volume 9.7 fL (7.4-10.4); Platelet Count 345 K/uL (130-400); RDW Coefficient of Variation 12.7 % (11.5-14.5); RDW Standard Deviation 41.2 fL (36.4-46.3); Red Blood Count 3.78 M/uL (4.2-5.4); White Blood Count 10.23 K/uL (4.8-10.8)
[2020-07-31 06:39] LABS: BUN Creatinine Ratio 8.9 (10-20); Calcium 8.8 mg/dl (8.5-10.1); Est GFR (African American) 148.6; Est GFR (Non-African American) 128.2; Potassium 3.6 mmol/L (3.5-5.1)
[2020-07-31 06:45] LABS: Basophils # (auto) 0.02 K/uL (0-0.2); Basophils % (auto) 0.2 %; Immature Granulocytes # (auto) 0.64 K/uL (0.00-0.02); Immature Granulocytes % (auto) 6.3 %; Lymphocytes % (auto) 9.8 %; Monocytes # (auto) 0.62 K/uL (0.11-0.59); Monocytes % (auto) 6.1 %; Neutrophils # (auto) 7.95 K/uL (1.4-6.5); Neutrophils % (auto) 77.6 %; Toxic Granulation 1+
[2020-07-31] MEDS: methylPREDNISolone 40 MG in SYRINGE 0 ML IV SCH ×2 (09:29→21:56)
--- NOTE | 2020-07-31 14:37 | Hospitalist Progress Note ---
Date of Service July 31, 2020 Assessment & Plan (1) Colitis: Tomasa Phipps is a 20 y/o female w/ hx of internal hemorrhoids who was admitted on 07/30/2020 for diarrhea with blood and mucus x1 week - likely IBD. Bloody Diarrhea - frequent diarrhea with blood and mucus x1 week, not directly related to foods, CT ab/pelv showing wall thickening of the colon, stool cx negative for infection --> suspect IBD - continue IVFs with D5NS + 20mEq KCL @125cc/hr - GI consulted: - continue Solu-Medrol 40mg IV BID - colonoscopy planned for 08/01 - Zofran PRN for nausea - trend CBC/BMP daily FEN/GI: clear liquid diet --> NPO at midnight for colonoscopy, D5W NSS+20meq KCl @ 125ml/hr DVT: SCDs Code: Full Code Dispo: Med/Surg (2) Diarrhea: (3) Leukocytosis: (4) Fever: (5) Acute dehydration: Admission and Anticipated Discharge Date Admission Date: July 30, 2020 Supervising Physician Co-Signing Physician Notes I personally examined the patient and verified all alcantar points of history and exam, discussed case, and agree with decision making with Dr Kilpatrick. Ongoing abdominal pain and diarrhea, although seems to be improving. Answered all questions to the best my ability.. Vitals noted, in general she is awake and alert pleasant no distress. HEENT normocephalic atraumatic mucous membranes moist. Breathing unlabored no accessory muscle use good effort. Skin shows no rashes no pallor or icterus. Neuro shows cranial nerves II through XII grossly intact gross motor and sensory intact. Bloody diarrheagiven the time between the questionable meal and the onset of the diarrhea I agree with gastroenterology that foodborne illness is less likely. Concerning for IBD. For colonoscopy tomorrow. Ongoing patient education and questions answered. Subjective No acute events overnight. The patient reports improvement in lower abdominal fullness/tenderness since starting IV steroids. Reports persistent watery diarrhea: 5-6 times per day with blood and mucus. Denies fever/chills, chest pain, SOB, N/V. Review of Systems Review of Systems: Pertinent positives and negatives mentioned in HPI. Physical Exam Physical Exam: General: A&Ox3. NAD. Cooperative. HEENT: Atraumatic, normocephalic. Pulm: CTAB A&P. -wheezes, -rales, -rhonchi. Symmetrical chest rise. No increase work of breathing. No respiratory distress. Cardiac: RRR, -mrg. Radial pulses intact and symmetrical. Abdominal: soft, non-tender, BS x 4, mild tenderness to palpation of bilateral lower quadrants Results & Data Results & Data ([facility]) Vital Signs (Past 12 Hours) Vital Signs Temp Pulse Resp BP Pulse Ox 07/31/20 07:04 36.9 C 66 16 109/70 96 07/31/20 03:39 36.3 C L Resident Activity Tracking Resident Involvement: Resident Care Provided Care Provided: Adult Hospital Medicine (1) Diarrhea Diarrhea type: unspecified type Qualified Code(s): R19.7 - Diarrhea, un specified (2) Leukocytosis Leukocytosis type: unspecified Qualified Code(s): D72.829 - Elevated white blood cell count, unspecified
[2020-07-31] MEDS ORDERED: LAVAGE SOLUTION 4000ML PO SCH (18:00)
--- NOTE | 2020-07-31 18:30 | Billing Data ---
Date of Service July 31, 2020 Coding Level of Care Code 12574 Subseq Hosp Care Lvl 3
[2020-08-01 06:17] LABS: Hematocrit (blood only) 35.6 % (37-47); Hemoglobin 11.5 g/dL (12.0-16.0); Mean Corpuscular Hemoglobin 29.4 pg (25-34); Mean Corpuscular Hgb Conc 32.3 g/dL (32-36); Mean Platelet Volume 9.5 fL (7.4-10.4); Platelet Count 413 K/uL (130-400); RDW Standard Deviation 43.1 fL (36.4-46.3); Red Blood Count 3.91 M/uL (4.2-5.4); White Blood Count 9.75 K/uL (4.8-10.8)
[2020-08-01 06:53] LABS: BUN Creatinine Ratio 11.3 (10-20); Calcium 8.5 mg/dl (8.5-10.1); Creatinine Clr Calc Pharmacy 117.4 ml/min; Est GFR (African American) 136.5; Est GFR (Non-African American) 117.7
[2020-08-01 06:57] LABS: Basophils # (auto) 0.05 K/uL (0-0.2); Basophils % (auto) 0.5 %; Echinocytes 1+; Immature Granulocytes # (auto) 0.76 K/uL (0.00-0.02); Immature Granulocytes % (auto) 7.8 %; Lymphocytes # (auto) 1.86 K/uL (1.2-3.4); Lymphocytes % (auto) 19.1 %; Monocytes # (auto) 0.73 K/uL (0.11-0.59); Monocytes % (auto) 7.5 %; Neutrophils # (auto) 6.35 K/uL (1.4-6.5); Neutrophils % (auto) 65.1 %; Toxic Granulation 1+
[2020-08-01] MEDS: D5NSS + 20MEQ KCL 20 MEQ/1,000 ML BAG IV SCH ×2 (07:24→14:05)
--- NOTE | 2020-08-01 07:59 | Hospitalist Progress Note ---
Date of Service August 01, 2020 Assessment & Plan Admission and Anticipated Discharge Date Admission Date: July 30, 2020 Results & Data Results & Data ([facility]) Vital Signs (Past 12 Hours) Vital Signs Temp Pulse Resp BP Pulse Ox 08/01/20 07:43 36.7 C 48 L 18 120/74 90 07/31/20 22:31 36.6 C 69 20 134/84 96
--- NOTE | 2020-08-01 08:19 | History & Physical Bridge Note ---
Date of Service August 01, 2020 History & Physical Bridge Note I have examined the patient, reviewed the History & Physical and in the interval since the performance of the History & Physical I have noted the following changes of clinical significance: no changes noted proceed with colonoscopy. risks/benefits and procedure discussed with patient, who agrees to proceed
--- NOTE | 2020-08-01 08:45 | Anesthesiology Consultation ---
Date of Service August 01, 2020 Assessment & Plan (1) Colitis: Chart Review Chart Review: Acceptable Risk for Surgery and Patient NOT seen in Pre Admission Testing Consults Requested none ASA ASA2 Proposed Anesthesia Anesthesia Type: MAC Risk / Benefits Reviewed With: PT / POA / Parent / Guardian, Accepts Plan and Informed Consent Obtained Additional Comments: COVID neg 07/30/20 HCG neg 07/29/20 History Surgery Operation Date: 08/01/20 16:00 Proposed Procedures p Colonoscopy Dr. Ramone Pack MD Height/Weight Height: 5 ft 9 in Weight: 61 kg Allergies Allergy/AdvReac Type Severity Reaction Status Date / Time No Known Allergies Allergy Verified 08/01/20 09:05 Medications Home Medications Medication Instructions Recorded Confirmed Last Taken dicyclomine 10 mg PO QID 07/29/20 07/29/20 Unknown loperamide [Imodium] 2 mg PO Q6H PRN 07/29/20 07/29/20 07/29/20 17:30 Active Medications Generic Name Dose Route Start Last Admin Trade Name Freq PRN Reason Stop Dose Admin Acetaminophen 650 mg 07/30/20 04:10 07/30/20 07:36 Acetaminophen 325 Mg Tab PO 08/29/20 04:09 650 mg Q4H PRN Administration pain/fever Potassium Chloride/Dextrose/Sod Cl 20 meq in 1,000 mls @ 125 mls/hr 07/30/20 04:30 08/01/20 08:58 D5nss + 20meq Kcl IV 08/29/20 04:29 0 mls/hr .Q8H JAE Infusion Methylprednisolone 40 mg/ 0.64 mls @ 1.5 mls/min 07/30/20 13:00 07/31/20 21:56 Syringe IV 08/29/20 12:59 1.5 mls/min Q12H JAE Administration Ondansetron HCl 4 mg 07/30/20 04:10 07/30/20 11:29 Ondansetron Inj 2 Mg/Ml 2 Ml Vial IV 08/29/20 04:09 4 mg Q6H PRN Administration Nausea Past Medical History Medical History No significant past medical history Past Surgical History Surgical History (Updated 08/01/20 @ 09:12 by JHONNY Hood Bates teeth extracted Social History Smoking Status: Never smoker Hx Alcohol Use: No Hx Substance Use: No Physical Exam Vital Signs Last Vital Signs Temp 36.7 C 08/01/20 09:07 Pulse 50 L 08/01/20 09:07 Resp 16 08/01/20 09:07 BP 115/80 08/01/20 09:07 Pulse Ox 99 08/01/20 09:07 ENMT Mouth: + small oral opening; no TMJ abnormality Thyromental Distance: > or= 3.5 Finger Breadths Mallampati Class: II Neck normal visual inspection and trachea midline; neck extension not limited Respiratory normal respiratory effort Auscultation: lungs clear to auscultation bilaterally Cardiovascular Rate/Rhythm: regular rate and regular rhythm Heart Sounds: no murmur Musculoskeletal Spine: normal cervical ROM Extremities: full ROM of extremities Neurologic moves all extremities Psychiatric Orientation: alert and oriented x 3 Testing Laboratory Results 08/01/20 05:52 08/01/20 05:52 Urine Color [place] 07/29/20 19:35 Urine Appearance Cloudy (Clear) A 07/29/20 19:35 Urine pH 6.5 (4.5-7.5) 07/29/20 19:35 Ur Specific [place] 1.022 (1.000-1.030) 07/29/20 19:35 Urine Protein 1+ (Negative) H 07/29/20 19:35 Urine Glucose (UA) Negative (Negative) 07/29/20 19:35 Urine Ketones 4+ (Negative) H 07/29/20 19:35 Urine Nitrite Negative (Negative) 07/29/20 19:35 Ur Leukocyte Esterase Trace (Negative) H 07/29/20 19:35 Urine WBC (Auto) 1-5 /hpf (0-5) 07/29/20 19:35 Urine RBC (Auto) 5-10 /hpf (0-4) H 07/29/20 19:35 U Hyaline Cast (Auto) 5-10 /lpf (0-5) H 07/29/20 19:35 U Epithel Cells (Auto) >30 /lpf (0-5) H 07/29/20 19:35 Urine Bacteria (Auto) Negative (Negative) 07/29/20 19:35 07/29/20 Unknown Escherichia coli Shiga Toxins Test - Final Stool Stool Culture - Final No Salmonella isolated, No Shigella isolated, No Campylobacter jejuni isolated.
--- NOTE | 2020-08-01 08:47 | Student Report ---
[facility] Med Student Progress Note <Arleen Wynn - Last Filed: 08/01/20 14:28> Date of Service Date of service: August 01, 2020 Subjective Subjective: Tomasa is a 20 year old female with a past medical history of interna l hemorrhoids, who presented 3 days ago with a 5 day history of watery diarrhea with blood initially and cramping abdominal pain. These symptoms were accompanied with nausea, lack of appetite, weak, and subjective fevers. She ate restaurant food on 07/24 (ramen, father ate as well, and salad with florentino). She took Imodium which did not stop her diarrhea and S prescribed Bentyl but she never go that filled. During her hospital course thus far here COVID-19 test was negative and stool cultures for c diff were also negative. Last night she underwent the [employer] prep for a colonoscopy later today. She she said vomited during the prep and has had nausea since the costume cutter today. Zofran PRN is available to her. ROS ROS: Constitutional: -fever/chills, +nausea, +vomiting x 1, Head: -LOC, -change in vision, -lightheadedness Neurologic: -syncope, -focal weakness, -numbness, -dizziness Cardiac: -chest pain, -edema Pulm: -cough, -sputum production, -SOB, -pain on inspiration, Skin: -itching, -rashes GI: -diarrhea, - constipation, +abdominal pain, +distention Physical Exam Physical Exam: General: alert and oriented, in no acute distress, anxious Eyes: pupils equal/round, reactive to light, no scleral icterus Neck: no lymphadenopathy Cardio: RRR, no rubs/ gallop, normal capillary refill, no lower extremity edema Lungs: symmetrical b/l entry and normal effort, clear to auscultation Abdominal: active decreased bowel sounds, abdomen non-distended, generally tender, no guarding Results Results: Vitals 48, 120/74, 18, 36.7, 90% room air, BMI 19.9 Intake: 4437.5, Output: 2 unmeasured voids Labs Na: 143 K: 4 Cl: 110 HCO3: 26 Bun: 8 Cret: .73 Gluc: 161 WBC: 9.75 HGB: 11.5 HCT: 35.6 PLT: 413 Imaging Circumferential wall thickening (cecum to descending colon) Pericolonic stranding Trace pericolonic free fluid Fluid filled appendix at the upper limit of normal Colonoscopy: Pancolitis with backwash ileitis A&P A&P: Summary statement: Tomasa is a 20 year old female on hospital day 3 with a PMX of internal hemorrhoids who presented with a 5 day history of diarrhea and abdominal pain with imaging and colonoscopy suggesting Ulcerative Colitis. Assessment Problems - diarrhea (bloody), fever, leukocytosis, acute dehydration DDX - IBD, Infectious colitis, diverticulitis, IBS, Tomasa presented with with a 5 day history of watery diarrhea with blood initially. Number 1 on the differential is IBD, such as Crohn's or UC. This is supportive by imaging showing evidence of colitis. This diagnosis will be investigated today with a colonoscopy. Also on the differential is infectious colitis. On 07/24 she a salad with florentino lettuce so E coli is possible but unlikely because of the initial blood in her diarrhea. Although, she has a history of internal hemorrhoids which could be contributing to this presentation. C diff was negative. Other infectious causes of diarrhea include C ampylobacter jejuni, Shigella spp., Salmonella spp., or other E. coli strains. Other items on the differential include diverticulitis, which more often presents with localized abdominal pain to the LLQ and constipation than diarrhea but should be visualized on today's colonoscopy. Finally IBS is also possible if after this work-up other causes are not identified. Plan Colitis - d/c IV fluids - lactose free low fiber diet - IV steroids (solumedrol [id number]) with plans to change to oral DVT: SCDs, no pharmaco-prophylaxis necessary due to low risk (young age and mobile) Full code status Disposition: medical floor
[2020-08-01] MEDS ORDERED: LIDOCAINE HCL 2% 2 ML VIAL/AMP(20MG/ML) INFIL ONE (08:54)
[2020-08-01] MEDS ORDERED: PROPOFOL IV EMULSION 10 MG/ML 20 ML VIAL IV ONE (08:54)
[2020-08-01] MEDS ORDERED: MIDAZOLAM HCL 1 MG/ML 2ML VIAL ONE (08:55)
--- NOTE | 2020-08-01 09:47 | GI REPORT ---
Patient Name: Tomasa Phipps Procedure Date: 08/01/2020 9:08 AM Date of : 2000 Admit Type: Inpatient Age: 20 Gender: Female Attending MD: Jasbir Pack MD Procedure: Colonoscopy Providers: Jasbir Pack MD Referring MD: Dolores Alfredo Indications: Clinically significant diarrhea of unexplained origin, Abnormal CT of the GI tract Medicines: Monitored Anesthesia Care Complications: No immediate complications. Estimated blood loss: None. Estimated Blood Loss: Estimated blood loss: none. Procedure: Pre-Anesthesia Assessment: - Prior Anticoagulants: The patient has taken no previous anticoagulant or antiplatelet agents. - ASA Grade Assessment: II - A patient with mild systemic disease. After I obtained informed consent, the scope was passed under direct vision. Throughout the procedure, the patient's blood pressure, pulse, and oxygen saturations were monitored continuously. The scope was introduced through the anus and advanced to the terminal ileum, with identification of the appendiceal orifice and IC valve. The colonoscopy was performed without difficulty. The patient tolerated the procedure well. The quality of the bowel preparation was fair. Findings: Diffuse inflammation, moderate in severity and characterized by erythema and aphthous ulcerations was found in the terminal ileum. Biopsies were taken with a cold forceps for histology. Estimated blood loss: none. Inflammation characterized by congestion (edema), erythema, friability, loss of vascularity, aphthous ulcerations and deep ulcerations was found in a continuous and circumferential pattern from the rectum to the terminal ileum. No sites were spared. This was severe, and when compared to previous examinations, the findings are new. Biopsies were taken with a cold forceps for histology. Estimated blood loss: none. stool sample sent for testing. Impression: - Preparation of the colon was fair. - Ileitis. Biopsied. - Pancolitis ulcerative colitis. Inflammation was found from the rectum to the terminal ileum. This was severe, new compared to previous examinations. Biopsied. Recommendation: - [facility] care. - lactose free diet - continue solumedrol 40 mg q12hrs Jasbir Pack MD 08/01/2020 9:47:27 AM This report has been signed electronically. Note Initiated On: 08/01/2020 9:08 AM Number of Addenda: 0 I attest to the content of the Intraoperative Record and orders documented therein, exceptions below {[id number]}
--- NOTE | 2020-08-01 09:51 | Procedure Note ---
Procedure Note Date of Service August 01, 2020 GI procedure note colonoscopy findings: severe pancolitis, worse on the right colon than the left, with evidence of ileitis (perhaps backwash ileitis). biopsied, and stool sample sent for further testing. Impression: severe UC with backwash ileitis Recs: --continue steroids [id number], will need a 4 week prednisone taper upon discharge (40 daily for 1 week, 30 daily for 1 week, etc.) --lactose free low fiber diet --supportive care, trend H/H --f/u path results --will need to follow up in the office in 1 week Jasbir Pack MD Gastroenterology Coding
--- NOTE | 2020-08-01 09:52 | Anesthesiology Progress Note ---
Date of Service August 01, 2020 Anesthesia Post Procedure Vital Signs Vital Signs: Temp Pulse Resp BP Pulse Ox 08/01/20 09:44 76 16 113/82 98 08/01/20 09:07 36.7 C 50 L 16 115/80 99 08/01/20 07:43 36.7 C 48 L 18 120/74 90 07/31/20 22:31 36.6 C 69 20 134/84 96 07/31/20 15:30 37.1 C 54 L 16 126/78 98 Pain Intensity Bilateral Abdomen: Pain Intensity: 3 Transfer of Care Handoff Completed per policy Notes Mental Status: alert / awake / arousable and participated in evaluation Nausea / Vomiting: adequately controlled Pain: adequately controlled Airway Patency, RR, SpO2: stable & adequate BP & HR: stable & adequate Hydration State: stable & adequate Anesthetic Complications: no major complications apparent
[2020-08-01] MEDS: ONDANSETRON INJ 2 MG/ML 2 ML VIAL IV PRN ×2 (10:28→22:24)
[2020-08-01] MEDS: methylPREDNISolone 40 MG in SYRINGE 0 ML IV SCH ×2 (10:32→21:10)
--- NOTE | 2020-08-01 15:43 | Hospitalist Progress Note ---
Date of Service August 01, 2020 Assessment & Plan (1) Colitis: Tomasa Phipps is a 20 y/o female w/ hx of internal hemorrhoids who was admitted on 07/30/2020 for diarrhea with blood and mucus x1 week - likely IBD. Bloody Diarrhea - pancolitis on colonoscopy - frequent diarrhea with blood and mucus x1 week, not directly related to foods, CT ab/pelv showing wall thickening of the colon, stool cx negative for infection - continue IVFs with D5NS + 20mEq KCL @125cc/hr - GI consulted: - continue Solu-Medrol 40mg IV BID - colonoscopy 08/01 - pancolitis - advance diet to lactose free/low fibre diet. - d/c IVF once tolerating PO well. - Outpatient f/u on pathology results. - Zofran PRN for nausea - trend CBC/BMP daily Mild anemia - iron supplementation on discharge. FEN/GI: lactose free/low fibre diet D5W NSS+20meq KCl @ 125ml/hr DVT: SCDs Code: Full Code Dispo: Med/Surg (2) Diarrhea: (3) Leukocytosis: (4) Fever: (5) Acute dehydration: Admission and Anticipated Discharge Date Admission Date: July 30, 2020 Subjective feeling better overall denies denied any further rectal bleeding no bowel movements today no fever underwent colonoscopy Physical Exam Constitutional: WD/WN, vitals as above Gastrointestinal (Abdomen): normal bowel sounds, soft, nontender, no hepatosplenomegaly Psychiatric: A+Ox3, euthymic affect Results & Data Results & Data ([facility]) Vital Signs (Past 12 Hours) Vital Signs Temp Pulse Resp BP Pulse Ox 08/01/20 10:41 36.4 C L 54 L 14 154/90 H 100 08/01/20 10:14 48 L 16 124/84 96 08/01/20 09:59 64 16 132/91 100 08/01/20 09:44 76 16 113/82 98 08/01/20 09:07 36.7 C 50 L 16 115/80 99 08/01/20 07:43 36.7 C 48 L 18 120/74 90 (1) Diarrhea Diarrhea type: unspecified type Qualified Code(s): R19.7 - Diarrhea, unspecified (2) Leukocytosis Leukocytosis type: unspecified Qualified Code(s): D72.829 - Elevated white blood cell count, unspecified
[2020-08-01] MEDS: ACETAMINOPHEN 1000 MG/100 ML IV IV PRN (19:37)
[2020-08-01] MEDS ORDERED: METOCLOPRAMIDE HCL INJ 5 MG/ML 2 ML VIAL IV STA (22:41)
[2020-08-01] MEDS ORDERED: ONDANSETRON INJ 2 MG/ML 2 ML VIAL IV STA (22:42)
[2020-08-01 23:34] LABS: Hematocrit (blood only) 32.9 % (37-47); Hemoglobin 11.1 g/dL (12.0-16.0)
[2020-08-02 06:26] LABS: Hematocrit (blood only) 35.8 % (37-47); Mean Corpuscular Hemoglobin 29.9 pg (25-34); Mean Corpuscular Hgb Conc 33.5 g/dL (32-36); Mean Corpuscular Volume 89.3 fL (80-100); Mean Platelet Volume 9.5 fL (7.4-10.4); Nucleated RBC # (auto) 0.02 K/uL (0-0); Nucleated RBC % (auto) 0.2 %; Platelet Count 415 K/uL (130-400); RDW Coefficient of Variation 12.8 % (11.5-14.5); RDW Standard Deviation 41.4 fL (36.4-46.3); Red Blood Count 4.01 M/uL (4.2-5.4); White Blood Count 10.38 K/uL (4.8-10.8)
[2020-08-02 06:59] LABS: Basophils # (auto) 0.03 K/uL (0-0.2); Basophils % (auto) 0.3 %; Immature Granulocytes # (auto) 0.77 K/uL (0.00-0.02); Immature Granulocytes % (auto) 7.4 %; Lymphocytes # (auto) 1.48 K/uL (1.2-3.4); Lymphocytes % (auto) 14.3 %; Monocytes % (auto) 9.6 %; Neutrophils % (auto) 68.4 %; Toxic Granulation 2+
--- NOTE | 2020-08-02 07:30 | Hospitalist Progress Note ---
Date of Service August 02, 2020 Assessment & Plan (1) Colitis: Tomasa Phipps is a 20 y/o female w/ hx of internal hemorrhoids who was admitted on 07/30/2020 for diarrhea with blood and mucus x1 week. COlonoscopy showing sever UC. Bloody Diarrhea - pancolitis on colonoscopy - frequent diarrhea with blood and mucus x1 week, not directly related to foods, CT ab/pelv showing wall thickening of the colon, stool cx negative for infection - GI consulted: --Continue Solu-Medrol 40 mg q 12 hours. --Low lactose/residue diet. --Await pathology and remaining stool studies which are pending. --Continue supportive care per primary team. - Frequent stools last night but better since morning. - Zofran PRN for nausea - trend CBC/BMP daily Mild anemia - iron supplementation on discharge. FEN/GI: lactose free/low fibre diet DVT: SCDs Code: Full Code Dispo: Med/Surg (2) Diarrhea: (3) Leukocytosis: (4) Fever: (5) Acute dehydration: Admission and Anticipated Discharge Date Admission Date: July 30, 2020 Supervising Physician Co-Signing Physician Notes Resident Physician Supervision Note: I independently interviewed and examined the patient and verified the alcantar history and physical, reviewed labs and image studies, discussed the case with the resident Dr. Sprague and agree with the findings and care plan. Subjective Tomasa felt nauseous overnight. She received Zofran 4mg and Reglan 10mg. She also reports that she had abdominal discomfort/bloating and continued to have multiple episodes of bloody diarrhea. Feeling better when I saw her in the morning--she was eating breakfast, though she does report that she does not eat very much of it. Review of Systems Review of Systems: All systems reviewed & are unremarkable except as noted in Subjective Physical Exam Constitutional: WD/WN, vitals as above no acute distress Respiratory: normal respiratory effort, lungs clear to auscultation Auscultation: no crackles, no rales, no rhonchi and no wheezes Cardiovascular: RRR, no murmur, no edema Heart Sounds: normal S1 and normal S2 Gastrointestinal (Abdomen): Inspection/Auscultation: abdomen normal to inspection and normal bowel sounds; abdomen not distended Percuss ion/Palpation: + abdomen tender and abdomen soft Musculoskeletal: no cyanosis or clubbing, extremities motor strength 5/5 Skin: no rashes, warm and dry Psychiatric: A+Ox3, euthymic affect Results & Data Results & Data ([facility]) Vital Signs (Past 12 Hours) Vital Signs Temp Pulse Resp BP Pulse Ox 08/02/20 07:17 36.7 C 57 L 16 120/63 95 08/02/20 03:41 36.5 C 57 L 16 115/71 98 08/01/20 22:30 36.6 C 41 L 16 132/87 95 Resident Activity Tracking Resident Involvement: Resident Care Provided Care Provided: Adult Hospital Medicine (1) Diarrhea Diarrhea type: unspecified type Qualified Code(s): R19.7 - Diarrhea, unspecified (2) Leukocytosis Leukocytosis type: unspecified Qualified Code(s): D72.829 - Elevated white blood cell count, unspecified
[2020-08-02 08:12] LABS: BUN Creatinine Ratio 13.6 (10-20); Calcium 8.7 mg/dl (8.5-10.1); Creatinine Clr Calc Pharmacy 129.8 ml/min; Est GFR (African American) 146.4; Est GFR (Non-African American) 126.3; Potassium 4.1 mmol/L (3.5-5.1)
--- NOTE | 2020-08-02 09:39 | Electrocardiogram Report ---
Test Reason : Blood Pressure : / mmHG Vent. Rate : 043 BPM Atrial Rate : 043 BPM P-R Int : 122 ms QRS Dur : 078 ms QT Int : 522 ms P-R-T Axes : 066 038 046 degrees QTc Int : 441 ms Marked sinus bradycardia Abnormal ECG No previous ECGs available Confirmed by Calvin Bishop ([id number]) on 08/02/2020 9:39:24 AM Referred By: [facility] Confirmed By:Calvin Bishop
[2020-08-02] MEDS: methylPREDNISolone 40 MG in SYRINGE 0 ML IV SCH ×2 (09:40→21:50)
--- NOTE | 2020-08-02 11:58 | Gastroenterology Progress Note ---
Date of Service August 02, 2020 Assessment & Plan (1) Colitis: (2) Diarrhea: Abdominal pain, diarrhea, and rectal bleeding with findings of severe pancolitis: suspect new onset IBD most likely, less likely infectious at this point (C Diff negative). Recs: --Continue Solu-Medrol 40 mg q 12 hours. --Low lactose/residue diet. --Await pathology and remaining stool studies which are pending. --Continue supportive care per primary team. Admission and Anticipated Discharge Date Admission Date: July 30, 2020 Subjective Patient reports worsened abdominal pain and diarrhea last night after colonoscopy. Currently she rates her abdominal pain 6/10 in intensity, mostly in the lower quadrants. +bloating and nausea but no vomiting. Continues Reports she has had 3 bms overnight and 4 this morning with loose, bloody consistency. No fevers/chills. Pancolitis noted on colonoscopy yesterday. Stool for C Difficile infection is negative. Histology is pending. Remains hemodynamically stable. Diet advanced to lactose free, low residue. Continues Solu-Medrol 40 mg IV BID. Review of Systems Constitutional: as per Subjective / HPI and + weight loss Eyes: no eye pain and no worsening vision Respiratory: no problem reported Cardiovascular: no problem reported Gastrointestinal: as per Subjective / HPI Musculoskeletal: + back pain and + swelling (hands since starting steroids) Integumentary: no rash Neurologic: no dizziness and no syncope Physical Exam Constitutional: WD/WN, vitals as above well developed and well nourished Eyes: EOM intact bilaterally Neck: normal visual inspection Respiratory: normal respiratory effort, lungs clear to auscultation Cardiovascular: Rate/Rhythm: regular rate and regular rhythm Gastrointestinal (Abdomen): Inspection/Auscultation: abdomen normal to inspection and + hyperactive bowel sounds; abdomen not distended Percussion/Palpation: + abdomen tender and abdomen soft Musculoskeletal: Extremities: extremities normal to inspection Skin: no rashes, warm and dry Psychiatric: A+Ox3, euthymic affect Results & Data Results & Data ([facility]) Vital Signs (Past 12 Hours) Vital Signs Temp Pulse Resp BP Pulse Ox 08/02/20 07:17 36.7 C 57 L 16 120/63 95 08/02/20 03:41 36.5 C 57 L 16 115/71 98 Laboratory Results Abnormal lab results 08/01/20 08/02/20 08/02/20 Range/Units 23:24 06:03 06:07 RBC 4.01 L (4.2-5.4) M/uL Hgb 11.1 L (12.0-16.0) g/dL Hct 32.9 L 35.8 L (37-47) % Plt Count 415 H (130-400) K/uL Neut # (Auto) 7.10 H (1.4-6.5) K/uL [place]ill # (Auto) 1.00 H (0.11-0.59) K/uL Immature Gran # (Auto) 0.77 H (0.00-0.02) K/uL Absolute Nucleated RBC 0.02 H (0-0) K/uL Glucose 127 H (70-99) mg/dl PG Care Time/CCT Total # of Minutes Spent Total Time Spent with Patient: Total time spent is greater than 50% in coordination of care (as documented) at patient's floor/unit and/or counseling patient: Coding Level of Care Code 39445 Subseq Hosp Care Lvl 3 Diagnoses Colitis K52.9 Diarrhea R19.7 Diarrhea type: unspecified type (1) Diarrhea Diarrhea type: unspecified type Qualified Code(s): R19.7 - Diarrhea, unspecified
[2020-08-02] MEDS: MULTIVITAMIN CHEWABLE TAB PO SCH (16:25)
[2020-08-02] MEDS: ONDANSETRON INJ 2 MG/ML 2 ML VIAL IV PRN (17:49)
[2020-08-02] MEDS: ACETAMINOPHEN 1000 MG/100 ML IV IV PRN (21:51)
[2020-08-03 06:11] LABS: Hematocrit (blood only) 37.8 % (37-47); Hemoglobin 12.5 g/dL (12.0-16.0); Mean Corpuscular Hemoglobin 29.3 pg (25-34); Mean Corpuscular Hgb Conc 33.1 g/dL (32-36); Mean Corpuscular Volume 88.7 fL (80-100); Mean Platelet Volume 9.5 fL (7.4-10.4); Platelet Count 434 K/uL (130-400); RDW Coefficient of Variation 12.6 % (11.5-14.5); RDW Standard Deviation 40.4 fL (36.4-46.3); Red Blood Count 4.26 M/uL (4.2-5.4); White Blood Count 10.81 K/uL (4.8-10.8)
[2020-08-03 06:33] LABS: Basophils # (auto) 0.04 K/uL (0-0.2); Basophils % (auto) 0.4 %; Immature Granulocytes # (auto) 0.63 K/uL (0.00-0.02); Immature Granulocytes % (auto) 5.8 %; Lymphocytes % (auto) 15.7 %; Monocytes # (auto) 0.76 K/uL (0.11-0.59); Neutrophils # (auto) 7.68 K/uL (1.4-6.5); Neutrophils % (auto) 71.1 %
[2020-08-03 06:40] LABS: BUN Creatinine Ratio 19.6 (10-20); Blood Urea Nitrogen 11 mg/dl (7-18); Calcium 8.4 mg/dl (8.5-10.1); Carbon Dioxide 27 mmol/L (21-32); Chloride 104 mmol/L (98-107); Creatinine Clr Calc Pharmacy 147.8 ml/min; Est GFR (African American) > 150.0; Est GFR (Non-African American) 131.8; Glucose 129 mg/dl (70-99); Potassium 4.1 mmol/L (3.5-5.1); Sodium 138 mmol/L (136-145)
--- NOTE | 2020-08-03 08:56 | Hospitalist Progress Note ---
Date of Service August 03, 2020 Assessment & Plan (1) Colitis: Tomasa Phipps is a 20 y/o female w/ hx of internal hemorrhoids who was admitted on 07/30/2020 for diarrhea with blood and mucus x1 week. Colonoscopy showing severe UC. New diagnosis Ulcerative Colitis - frequent diarrhea with blood and mucus x1 week, not directly related to foods, CT ab/pelv showing wall thickening of the colon, stool cx negative for infection - Pancolitis on colonoscopy. Biopsy consistent with UC - Persistent abdominal pain - Ordered Anti-TTG antibodies as well as IgA today for Celiac Disease work-up - Added gluten-free to diet as well - Per GI: --Continue Solu-Medrol 40 mg q 12 hours. --Low lactose/residue diet. Await Celiac testing as ordered. --Continue supportive care per primary team. --Patient's father updated by phone per patient request. - Continues to complain of bloody stools and abd pain overnight but better than previous night - Zofran PRN for nausea - trend CBC/BMP daily Mild anemia - iron supplementation on discharge. FEN/GI: lactose free/low fibre diet/gluten-free DVT: SCDs Code: Full Code Dispo: Med/Surg (2) Diarrhea: (3) Leukocytosis: (4) Fever: (5) Acute dehydration: Admission and Anticipated Discharge Date Admission Date: July 30, 2020 Supervising Physician Co-Signing Physician Notes Resident Physician Supervision Note: I independently interviewed and examined the patient and verified the alcantar history and physical, reviewed labs and image studies, discussed the case with the resident Dr. Sprague and agree with the findings and care plan. Subjective Tomasa reports that she continues to have bloody diarrhea and abdominal pain especially at night. She says she doesn't feel it is particularly related to judy d as it has happened at random times, not necessarily immediately after meals. She expresses concern that she hasn't noticed much improvement on the steroids. Review of Systems Review of Systems: All systems reviewed & are unremarkable except as noted in Subjective Physical Exam Constitutional: WD/WN, vitals as above no acute distress Respiratory: normal respiratory effort, lungs clear to auscultation Auscultation: no crackles, no rales, no rhonchi and no wheezes Cardiovascular: RRR, no murmur, no edema Heart Sounds: normal S1 and normal S2 Gastrointestinal (Abdomen): Inspection/Auscultation: abdomen normal to inspection and normal bowel sounds; abdomen not distended Percussion/Palpation: + abdomen tender and abdomen soft Musculoskeletal: no cyanosis or clubbing, extremities motor strength 5/5 Skin: no rashes, warm and dry Psychiatric: A+Ox3, euthymic affect Results & Data Results & Data ([facility]) Vital Signs (Past 12 Hours) Vital Signs Temp Pulse Resp BP Pulse Ox 08/03/20 07:17 36.6 C 56 L 16 107/67 96 08/02/20 22:19 36.7 C 54 L 16 133/86 94 Resident Activity Tracking Resident Involvement: Resident Care Provided Care Provided: Adult Hospital Medicine (1) Diarrhea Diarrhea type: unspecified type Qualified Code(s): R19.7 - Diarrhea, unspecified (2) Leukocytosis Leukocytosis type: unspecified Qualified Code(s): D72.829 - Elevated white blood cell count, unspecified
[2020-08-03] MEDS: ACETAMINOPHEN 1000 MG/100 ML IV IV PRN ×2 (09:29→17:58)
[2020-08-03] MEDS: MULTIVITAMIN CHEWABLE TAB PO SCH (09:30)
[2020-08-03] MEDS: methylPREDNISolone 40 MG in SYRINGE 0 ML IV SCH ×2 (09:30→21:55)
--- NOTE | 2020-08-03 11:07 | Gastroenterology Progress Note ---
Date of Service August 03, 2020 Assessment & Plan (1) Colitis: (2) Diarrhea: Abdominal pain, diarrhea, and rectal bleeding with findings of severe pancolitis: suspect new onset IBD most likely, less likely infectious at this point as C Diff and prelim cx negative. Recs: --Continue Solu-Medrol 40 mg q 12 hours. --Low lactose/residue diet. Await Celiac testing as ordered. --Await pathology.. --Continue supportive care per primary team. --Patient's father updated by phone per patient request. Admission and Anticipated Discharge Date Admission Date: July 30, 2020 Supervising Physician Co-Signing Physician Notes I agree with the findings as documented by MICHELLE Coronado Subjective Patient still with unchanged stool frequency and blood in stools but she is not anemic. Fecal calprotectin and pathology remains pending. Bloating has improved but abdominal pain has slightly worsened. She is tolerating diet but is concerned about gluten as she has more discomfort with bread. Spoke with Dr. Alfredo, Celiac testing is ordered. Review of Systems Constitutional: + sweats Gastrointestinal: as per Subjective / HPI Physical Exam Constitutional: WD/WN, vitals as above Respiratory: normal respiratory effort, lungs clear to auscultation Cardiovascular: RRR, no murmur, no edema Gastrointestinal (Abdomen): normal bowel sounds, soft, nontender, no hepatosplenomegaly Inspection/Auscultation: abdomen normal to inspection and + hyperactive bowel sounds; abdomen not distended Percussion/Palpation: + abdomen tender and abdomen soft Psychiatric: A+Ox3, euthymic affect Results & Data Results & Data ([facility]) Vital Signs (Past 12 Hours) Vital Signs Temp Pulse Resp BP Pulse Ox 08/03/20 07:17 36.6 C 56 L 16 107/67 96 Laboratory Results Abnormal lab results 08/03/20 08/03/20 Range/Units 05:30 05:30 WBC 10.81 H (4.8-10.8) K/uL Plt Count 434 H (130-400) K/uL Neut # (Auto) 7.68 H (1.4-6.5) K/uL [place] # (Auto) 0.76 H (0.11-0.59) K/uL Immature Gran # (Auto) 0.63 H (0.00-0.02) K/uL Creatinine 0.58 L (0.6-1.2) mg/dl Glucose 129 H (70-99) mg/dl Calcium 8.4 L (8.5-10.1) mg/dl PG Care Time/CCT Total # of Minutes Spent Total Time Spent with Patient: Total time spent is greater than 50% in coordination of care (as documented) at patient's floor/unit and/or counseling patient: Coding Level of Care Code 02238 Subseq Hosp Care Lvl 3 Diagnoses Colitis K52.9 Diarrhea R19.7 Diarrhea type: unspecified type (1) Diarrhea Diarrhea type: unspecified type Qualified Code(s): R19.7 - Diarrhea, unspecified
[2020-08-03] MEDS: ONDANSETRON INJ 2 MG/ML 2 ML VIAL IV PRN (18:15)
[2020-08-03] MEDS ORDERED: MoRPHine SULFATE 2 MG/ML CARP IV STA (22:15)
[2020-08-04 06:27] LABS: Hematocrit (blood only) 39.5 % (37-47); Hemoglobin 13.1 g/dL (12.0-16.0); Mean Corpuscular Hemoglobin 29.6 pg (25-34); Mean Corpuscular Hgb Conc 33.2 g/dL (32-36); Mean Corpuscular Volume 89.2 fL (80-100); Mean Platelet Volume 9.4 fL (7.4-10.4); Nucleated RBC # (auto) 0.04 K/uL (0-0); Nucleated RBC % (auto) 0.3 %; Platelet Count 438 K/uL (130-400); RDW Coefficient of Variation 12.7 % (11.5-14.5); RDW Standard Deviation 40.9 fL (36.4-46.3); Red Blood Count 4.43 M/uL (4.2-5.4); White Blood Count 12.69 K/uL (4.8-10.8)
[2020-08-04 07:00] LABS: BUN Creatinine Ratio 21.1 (10-20); Blood Urea Nitrogen 12 mg/dl (7-18); Calcium 8.6 mg/dl (8.5-10.1); Carbon Dioxide 27 mmol/L (21-32); Chloride 103 mmol/L (98-107); Creatinine Clr Calc Pharmacy 145.2 ml/min; Est GFR (African American) > 150.0; Glucose 128 mg/dl (70-99); Potassium 4.4 mmol/L (3.5-5.1); Sodium 137 mmol/L (136-145)
[2020-08-04 07:05] LABS: Basophils # (auto) 0.05 K/uL (0-0.2); Basophils % (auto) 0.4 %; Immature Granulocytes % (auto) 4.7 %; Lymphocytes # (auto) 1.89 K/uL (1.2-3.4); Lymphocytes % (auto) 14.9 %; Monocytes # (auto) 0.93 K/uL (0.11-0.59); Monocytes % (auto) 7.3 %; Neutrophils # (auto) 9.22 K/uL (1.4-6.5); Neutrophils % (auto) 72.7 %; Toxic Granulation 1+
[2020-08-04] MEDS: methylPREDNISolone 40 MG in SYRINGE 0 ML IV SCH ×2 (09:25→20:57)
[2020-08-04] MEDS: MULTIVITAMIN CHEWABLE TAB PO SCH (09:25)
--- NOTE | 2020-08-04 09:57 | Hospitalist Progress Note ---
Date of Service August 04, 2020 Assessment & Plan (1) Colitis: Tomasa Phipps is a 20 y/o female w/ hx of internal hemorrhoids who was admitted on 07/30/2020 for diarrhea with blood and mucus x1 week. Colonoscopy showing severe UC. New diagnosis Ulcerative Colitis - frequent diarrhea with blood and mucus x1 week, not directly related to foods, CT ab/pelv showing wall thickening of the colon, stool cx negative for infection - Pancolitis on colonoscopy. Biopsy consistent with UC - Persistent abdominal pain - IgA normal - Anti-TTG antibodies pending - Per GI: -Continue IV Solumedrol 40 mg IV q12; Patient will need a steroid taper on d/c (Beginning at 40 mg daily & decreasing by 5 mg weekly x 8 weeks) -Patient will need significant outpatient follow-up for decisions regarding further treatment & reassessment of biopsies. Of note, it appears that her biopsies indicated reactive changes of the TI vs low grade dysplasia. While reactive changes are favored, she will require follow-up. -Supportive care per primary team. - Continues to complain of bloody stools and abd pain but better than previous days - Added Bentyl 10mg PO QID PRN abd cramps/pain - Zofran PRN for nausea - trend CBC/BMP daily Mild anemia - iron supplementation on discharge. FEN/GI: lactose free/low fibre diet/gluten-free DVT: SCDs Code: Full Code Dispo: Med/Surg (2) Diarrhea: (3) Leukocytosis: (4) Fever: (5) Acute dehydration: Admission and Anticipated Discharge Date Admission Date: July 30, 2020 Supervising Physician Co-Signing Physician Notes Resident Physician Supervision Note: I independently interviewed and examined the patient and verified the alcantar history and physical, reviewed labs and image studies, discussed the case with the resident Dr. Sprague and agree with the findings and care plan. Subjective Tomasa feels she is doing better this morning. Says she continued to have pain last night and her Tylenol was not helping so received a one-time dose of morphine. This morning reports that she has felt much better since she has started eating more. Bloody BMs continue but happen less often now and are not as liquid as before. Denies fever, chills, n/v. Review of Systems Review of Systems: All systems reviewed & are unremarkable except as noted in Subjective Physical Exam Physical Exam: Constitutional: WD/WN, vitals as above, no acute distress Respiratory: normal respiratory effort, lungs clear to auscultation, no crackles, no rales, no rhonchi and no wheezes Cardiovascular: RRR, no murmur, no edema Heart Sounds: normal S1 and normal S2 Gastrointestinal (Abdomen): BS+ x4, ND, abdomen tender Musculoskeletal: no cyanosis or clubbing, extremities motor strength 5/5 Skin: no rashes, warm and dry Psychiatric: A+Ox3, euthymic affect Results & Data Results & Data ([facility]) Vital Signs (Past 12 Hours) Vital Signs Temp Pulse Resp BP BP Pulse Ox 08/04/20 07:26 36.3 C L 53 L 14 124/81 95 08/03/20 22:47 36.5 C 80 16 103/70 93 Resident Activity Tracking Resident Involvement: Resident Care Provided Care Provided: Adult Hospital Medicine (1) Diarrhea Diarrhea type: unspecified type Qualified Code(s): R19.7 - Diarrhea, unspecified (2) Leukocytosis Leukocytosis type: unspecified Qualified Code(s): D72.829 - Elevated white blood cell count, unspecified
--- NOTE | 2020-08-04 10:52 | Gastroenterology Progress Note ---
Date of Service August 04, 2020 Assessment & Plan (1) Ulcerative pancolitis: -Continue IV Solumedrol 40 mg IV q12; Patient will need a steroid taper on d/c (Beginning at 40 mg daily & decreasing by 5 mg weekly x 8 weeks) -Patient will need significant outpatient follow-up for decisions regarding further treatment & reassessment of biopsies. Of note, it appears that her biopsies indicated reactive changes of the TI vs low grade dysplasia. While reactive changes are favored, she will require follow-up. -Supportive care per primary team. -Follow-up with [facility] on Saturday. Admission and Anticipated Discharge Date Admission Date: July 30, 2020 Supervising Physician Co-Signing Physician Notes I personally evaluated the patient and agree with the findings as documented by Rubina Macias, TAMERA Exam: abd: soft, mild tenderness, nd has follow up with [facility]ae on tuesday 08/08. steroid taper as an outpatient until she gets on long-term therapy, likely will need dual therapy (6MP and Remicade). Subjective Patient is a 20 yo female with new diagnosis of UC. Her pathology returned consistent with UC & backwash ileitis. She continues on IV steroid therapy. She is reporting slow improvement of her symptoms. She is arranging follow-up outpatient GI care at [place]. She denies new issues. She notes some abdominal pain in the evening in particular. Pathology from Colonoscopy: A. Small bowel, terminal ileum, biopsies: - #1. Moderate active ileitis. See microscopic description. - #2. Negative for dysplasia or malignancy. B. Colon, right, biopsies: - #1. Chronic active colitis. See microscopic description. - #2. Moderate acute activity. - #3. Negative for dysplasia and malignancy. C. Colon, left, biopsies: - #1. Chronic active colitis. See microscopic description. - #2. Moderate acute activity. - #3. Negative for dysplasia and malignancy. Microscopic Description Biopsies of the terminal ileum reveal moderate active ileitis. The architecture remains intact. Focal areas of glandular atypia with nuclear stratification and hyperchromasia are noted, raising the differential of the reactive change versus low-grade dysplasia. Immunohistochemical stain for Ki-67 reveals predominantly basal type proliferative activity with no distinct involvement of the surface epithelium. The p53 appears heterogeneous. The features support a reactive interpretation. Biopsies from the right and left colon reveal moderate active colitis with cryptitis , crypt abscesses and lamina propria acute inflammation. Crypt shortening and basal plasmacytosis consistent with chronic changes are noted. No viral cytopathic changes are identified. Immunohistochemical stains for CMV are performed on all biopsies and are negative. The findings are consistent with inflammatory bowel disease. The diffuse nature of the process and histologic features suggest ulcerative colitis. Involvement of the terminal ileum may represent backwash ileitis. Clinical and endoscopic correlation is suggested. No dysplasia or malignancy is seen. Review of Systems Constitutional: no fever and no chills Respiratory: no cough and no dyspnea Cardiovascular: no chest pain Gastrointestinal: + abdominal pain, + diarrhea/loose stools (improving) and + blood in stools Physical Exam Constitutional: well developed Respiratory: normal respiratory effort Cardiovascular: Extremities: no edema Gastrointestinal (Abdomen): Inspection/Auscultation: abdomen normal to inspection Musculoskeletal: Head/Neck/Chest: normocephalic Psychiatric: A+Ox3, euthymic affect Results & Data Results & Data ([facility]) Vital Signs (Past 12 Hours) Vital Signs Temp Pulse Resp BP Pulse Ox 08/04/20 07:26 36.3 C L 53 L 14 124/81 95 PG Care Time/CCT Total # of Minutes Spent Total Time Spent with Patient: Total time spent is greater than 50% in coordination of care (as documented) at patient's floor/unit and/or counseling patient: Coding Level of Care Code 46304 Subseq Hosp Care Lvl 2 Diagnoses Ulcerative pancolitis K51.00
[2020-08-04 13:51] LABS: Transglutaminase, Tissue IgA 1 U/mL; Transglutaminase, Tissue IgG 1 U/mL
[2020-08-04] MEDS: ONDANSETRON INJ 2 MG/ML 2 ML VIAL IV PRN (18:10)
[2020-08-04] MEDS: DICYCLOMINE HCL 10 MG CAP PO PRN (20:57)
[2020-08-05 06:01] LABS: Hematocrit (blood only) 41.8 % (37-47); Mean Corpuscular Hgb Conc 33.5 g/dL (32-36); Mean Corpuscular Volume 89.5 fL (80-100); Mean Platelet Volume 9.5 fL (7.4-10.4); Platelet Count 466 K/uL (130-400); RDW Coefficient of Variation 12.7 % (11.5-14.5); RDW Standard Deviation 41.2 fL (36.4-46.3); Red Blood Count 4.67 M/uL (4.2-5.4); White Blood Count 14.98 K/uL (4.8-10.8)
[2020-08-05 06:32] LABS: Basophils # (auto) 0.05 K/uL (0-0.2); Basophils % (auto) 0.3 %; Eosinophils # (auto) 0.01 K/uL (0-0.5); Eosinophils % (auto) 0.1 %; Immature Granulocytes % (auto) 5.3 %; Lymphocytes # (auto) 2.37 K/uL (1.2-3.4); Lymphocytes % (auto) 15.8 %; Monocytes # (auto) 0.97 K/uL (0.11-0.59); Monocytes % (auto) 6.5 %; Neutrophils # (auto) 10.78 K/uL (1.4-6.5)
[2020-08-05 06:36] LABS: BUN Creatinine Ratio 17.5 (10-20); Calcium 8.7 mg/dl (8.5-10.1); Est GFR (African American) 138.7; Est GFR (Non-African American) 119.7; Potassium 4.3 mmol/L (3.5-5.1)
[2020-08-05] MEDS: DICYCLOMINE HCL 10 MG CAP PO PRN (07:26)
[2020-08-05] MEDS: MULTIVITAMIN CHEWABLE TAB PO SCH (09:21)
[2020-08-05] MEDS: methylPREDNISolone 40 MG in SYRINGE 0 ML IV SCH (09:21)
[2020-08-05] MEDS ORDERED: predniSONE 20 MG TAB PO STA (12:01)
[2020-08-05] MEDS ORDERED: hydrOXYzine HCl 25 MG TAB PO STA (12:01)
--- NOTE | 2020-08-05 13:17 | Discharge Summary ---
Date of Service August 05, 2020 Admission HPI Per Admitting Provider Patient is a 20 year female with PMHx internal hemorrhoids that presented with 6 day history of copious and occasionally blood tinged diarrhea with minimal relief with Imodium use. Patient notes that starting this past Saturday she started having copious amounts of diarrhea, upwards to 10 times daily, which would occasionally have bright red blood or be tinged pink. She notes that it improved slightly after using Imodium daily, but that she was still having diarrhea 6-7 times daily. She denies ever having anything similar in the past. She denies any history or family history of IBD. She does note that she had take out ramen 3 days prior to the start of her symptoms and a caesar salad made with florentino lettuce the day her symptoms started. She states that her father who had been up visiting her had eaten the ramen, but not the salad and was not having any symptoms. In addition to the diarrhea the patient has also noted abdominal pain and discomfort, limiting her PO intake due to nausea. She has not vomited, but "dry heaves." Notes having a low grade fever of 100.5F on and off throughout the week. She had visited [facility] services 2 days prior where a COVID-19 and Influenza screen were negative. She was given a prescription for Bentyl, but has not picked it up yet. Denies any chest pain, SOB, dysuria, hematuria. Med Hx - internal hemorrhoids Surg hx - negative Soc hx - [employer] student, no tobacco, alcohol, drug use Fam Hx - negative per patient, mother and father healthy Admission Exam Per Admitting Provider Constitutional: well developed and well nourished; no acute distress Eyes: PERRL, conjunctivae normal, anicteric sclerae ENMT: external ear and nose normal, oropharynx normal Neck: trachea midline, no thyromegaly Respiratory: normal respiratory effort, lungs clear to auscultation Cardiovascular: Rate/Rhythm: + tachycardic Heart Sounds: normal S1 and normal S2; no murmur Vessels: no JVD Extremities: no calf tenderness and no edema Gastrointestinal (Abdomen): Inspection/Auscultation: abdomen normal to inspection and normal bowel sounds; abdomen not distended Percussion/Palpation: + abdomen tender (diffusely TTP throughout, worse on L side ) and abdomen soft; no guarding and abdomen not rigid Rectal exam was deferred per patient request Musculoskeletal: no cyanosis or clubbing, extremities motor strength 5/5 Skin: no rashes, warm and dry Neurologic: PERRL, EOMI, accommodation nl, no face palsy, no dysarthria Psychiatric: Orientation: alert and oriented x 3 Affect: + anxious affect Principal Diagnosis Ulcerative Colitis Discharge Exam Constitutional WD/WN, vitals as above no acute distress Respiratory normal respiratory effort, lungs clear to auscultation Cardiovascular RRR, no murmur, no edema Heart Sounds: normal S1 and normal S2 Gastrointestinal (Abdomen) Inspection/Auscultation: normal bowel sounds; abdomen not distended Percussion/Palpation: + abdomen tender (lower abdomen) Musculoskeletal no cyanosis or clubbing, extremities motor strength 5/5 Skin no rashes, warm and dry Psychiatric A+Ox3, euthymic affect Discharge Data Allergies Allergy/AdvReac Type Severity Reaction Status Date / Time No Known Allergies Allergy Verified 08/01/20 09:05 Consultations 07/30/20 01:11 ED Decision to Admit Stat 07/30/20 04:10 Consult Gastroenterology Routine 08/01/20 13:35 Consult Case Management - Discharge Planning Routine Procedures Performed Operation Date: 08/01/20 16:00 Actual Procedures p Colonoscopy Biopsy Cytology - Jasbir Pack MD Ordered Studies 07/29/20 19:03 CT abd pelvis oral and IV con Stat Hospital Course (1) Colitis: Tomasa Phipps is a 20 y/o female w/ hx of internal hemorrhoids who was admitted on 07/30/2020 for diarrhea with blood and mucus x1 week. Colonoscopy showing severe UC. New diagnosis Ulcerative Colitis - frequent diarrhea with blood and mucus x1 week, not directly related to foods, CT ab/pelv showing wall thickening of the colon, stool cx negative for infection - Underwent colonoscopy - showed Pancolitis. Biopsy consistent with UC - Persistent abdominal pain - IgA normal - Anti-TTG antibodies negative - GI consulted during admission, recommendations below: - Patient will need a steroid taper on d/c (Beginning at 40 mg daily & decreasing by 5 mg weekly x 8 weeks) - Patient will need significant outpatient follow-up for decisions regarding further treatment & reassessment of biopsies. Of note, it appears that her biopsies indicated reactive changes of the TI vs low grade dysplasia. While reactive changes are favored, she will require follow-up. - Discharged with plans to f/u in [place] where she will be living with her parents Sleep Disturbance - Patient c/o difficulty sleeping while admitted - Prescribed hydroxyzine prn at discharge - Recommend further outpatient discussion for possible underlying anxiety issues FEN/GI: lactose free/low fibre diet Dispo: Discharge home, self care (2) Diarrhea: (3) Leukocytosis: (4) Fever: (5) Acute dehydration: Total Time Total Time Spent Total Time Spent (In Minutes): see Attending attestation Discharge Plan Discharge Items Patient Disposition: Home - Self-Care Reason For Visit: colitis Discharge Diagnosis: Ulcerative Colitis Condition on Discharge: Fair Activity: Per Instructions section Non-emergency contact: Primary Care Provider and [employer] Call non-emergency contact if: you have any medication questions, your symptoms worsen, your pain is not controlled, your pain is worsening and your temperature is above 101.5 Follow-up/Referrals: Emir Kilpatrick MD [Resident] - Diet: Gluten Free, Low Fiber and Lactose Intolerant Addtl Attending Provider Instructions: You were admitted to [facility] due to bloody diarrhea. While admitted you were evaluated by Gastroenterology and they performed a colonoscopy, which found evidence of severe ulcerative colitis. As such you were treated with intravenous steroids for 7 days. At this point, gastroenterology reevaluated you and deemed you appropriate for discharge. You were given a dose of oral steroids in the hospital, which you tolerated well. You will continue on oral steroids, which will be tapered on a weekly basis until you have been weaned off of them. It is recommended that you follow up with your GI doctor of choice as scheduled on Saturday. At that visit you will discuss ongoing treatment options for this condition, as well as address any other concerns you may have. We recommend that you follow a low fiber, lactose-free diet. Your anti-gluten antibody tests were negative, so you are not considered to have Celiac Disease. If your symptoms worsen or new ones arise before you are able to discuss them with your doctors, please seek emergency medical care. Thank you for allowing us to participate in your care. Your prednisone dosing on discharge will be as follows: Starting 08/06 take 8 pills (40mg) daily until 08/11, Starting 08/12 take 7 pills (35mg) daily until 08/18. Starting 08/19 take 6 pills (30mg) daily until 08/25. Starting 3/5 take 5 pills (25mg) daily until 09/01. Starting 09/02 take 4 pills (20mg) daily until 09/08. Starting 09/09 take 3 pills (15mg) daily until 09/15. Starting 09/16 take 2 pills (10mg) daily until 09/22. Starting 09/23 take 1 pill (5mg) daily until 09/29. Pending Studies at Discharge: No Stand-Alone Forms: [employer], Opioid Pain Management, Work/School Release (Inpt), Smoking Cessation Medications and DC Order Prescriptions: New prednisone 5 mg tablet See Rx Instructions .ROUTE .COMPLEX Qty: 252 RF: 0 hydroxyzine pamoate [Vistaril] 25 mg capsule 25 mg PO Q8H PRN (Reason: nausea and vomiting) Qty: 90 RF: 0 Discontinued loperamide [Imodium] 2 mg Capsule 2 mg PO Q6H PRN (Reason: Diarrhea) RF: 0 dicyclomine 10 mg capsule 10 mg PO QID RF: 0 Discharge Orders: Discharge Order (Routine); Ordered 08/05/20 Ordered By: Fareed Luis/Other Patient Handouts: Low-Fiber Diet, What Is Ulcerative Colitis?, Colitis Ulcerative Lifestyle, Understanding Colitis Admission Data Admit Date/Time: 07/30/20 01:59 Attending Provider: Dolores Alfredo Admit Provider: Cain Kitchen Primary Care Provider: [facility] Other Providers: Julio Cesar Carpenter ; Jasbir Pack ; Nirav Urbina ; Everett Florez Other Interventions: Discharge Summary Assessment (RN) Last Done: 08/05/20 14:50 Supervising Physician Co-Signing Physician Notes Resident Physician Supervision Note: I independently interviewed and examined the patient and verified the alcantar history and physical, reviewed labs and image studies, discussed the case with the resident Dr. Sprague and agree with the findings and care plan. Time spent in discharge 35 min Resident Activity Tracking Resident Involvement: Resident Care Provided Care Provided: Adult Hospital Medicine
== END 2020-08-05 15:49 | disposition home or self-care (01) | DRG 387 ==
LOC: ED 17:43 → 3W 07-30 01:59 → SUATTDRO 07-30 01:59 → 3W 07-30 03:47